=== PATIENT | male | born 1945 | race Caucasian/White ===

== ENCOUNTER 2023-11-08 18:16 | Inpatient (IN) | payer MEDICARE, SELFPAY ==
[2023-11-08] VITALS (19 sets, daily range): BP systolic 84–141; BP diastolic 45–81
[2023-11-08 12:44] LABS: % Basophils 0.3 % (0-2); % Eosinophils 0.8 % (0-6); % Immature Granulocytes 0.6 % (0-0.5); % Lymphocytes 4.1 % (20.5-51.1); % Monocytes 10.1 % (1.7-9.3); % Neutrophils 84.1 % (42.2-75.2); Absolute Eosinophils 0.1 10^3/uL (0-0.7); Absolute Immature Granulocytes 0.1 10^3/uL (0-0.05); Absolute Lymphocytes 0.6 10^3/uL (1.2-3.4); Absolute Monocytes 1.3 10^3/uL (0.1-0.6); Absolute Neutrophils 11.2 10^3/uL (1.4-6.5); Hematocrit 31.6 % (39.0-52.0); Hemoglobin 11.2 g/dL (13.0-18.0); Mean Corp Hgb Conc. 35.4 g/dL (33.0-37.0); Mean Corpuscular Hgb 32.8 pg (27.0-31.0); Mean Corpuscular Volume 92.7 fL (80.0-94.0); Mean Platelet Volume 8.8 fL (7.4-10.4); Nucleated Red Blood Cells % 0 % (-); Platelet Count 224 10^3/uL (130-400); Red Blood Cell Count 3.41 10^6/uL (4.70-6.10); White Blood Cell Count 13.3 10^3/uL (4.8-10.8)
[2023-11-08 13:06] LABS: ALT (SGPT) 47 U/L (0-50); AST (SGOT) 35 U/L (17-59); Albumin 3.7 g/dl (3.5-5.0); Alkaline Phosphatase 97 U/L (38-126); Blood Urea Nitrogen 92 mg/dl (9-20); Carbon Dioxide 18 mmol/L (22-30); Chloride 104 mmol/L (98-107); Glucose 106 mg/dl (70-99); Potassium 3.5 mmol/L (3.5-5.1); Sodium 135 mmol/L (135-145); Total Bilirubin 0.8 mg/dl (0.2-1.3); Total Protein 6.4 g/dl (6.3-8.2)
--- NOTE | 2023-11-08 13:36 | ED.GENMED ---
History of Present Illness
General
Chief Complaint: Back Pain
Source: patient and spouse
Exam Limitations: none
Time Seen by Provider: 11/08/23 13:26
Nursing documentation reviewed up to this point in time: agreed with
Travel History
Have you had any contact with someone who has COVID-19?: No
Do you have any symptoms of coronavirus? Fever > 100 degrees, chills, cough, shortness of breath, sore throat, loss of taste or smell, muscle aches, or headache?: No
History of Present Illness
History of Present Illness:
Patient to ED with comlaint of low back pain. Pain started earlier this week. He had an appointment with his PCP today for routine visit. UA at office heme pos. He was advised to come to ED. He has a history of kidney stones, follows with
[facility]. He has stage 5 kidney dx, follows with Dr. Norman at [facility]. Declines dialysis. Brought to ED by spouse for eval.
Past History
Past History
ED Past Medical History: HTN, Hypercholesterolemia, Renal failure, Psychiatric (Lewey Body Dementia) and Other (Kidneys stones, )
ED Past Surgical History: Other (hernia repair)
Social History
Tobacco: Non-smoker
Alcohol: None
Drug: None
Personal:
Living: with family
Employment: Employed
Family History
Family History: Hypertension
Review of Systems
Review of Systems
Allergies reviewed?: Yes
All Other Systems: ROS reviewed and negative except as documented in HPI and ROS
Constitutional: Reports no symptoms
EENT: Reports no symptoms
Respiratory: Reports no symptoms
Cardiac: Reports no symptoms
ABD/GI: Reports no symptoms
: Reports other (UA heme pos)
Musculoskeletal: Reports back pain (Bilateral low back pain)
Skin: Reports no symptoms
Neurological: Reports no symptoms
Psychiatric: Reports no symptoms
Phy Exam
General Physical Exam
General Presentation: well appearing and no apparent distress
General age: appears stated age
General Skin: warm and dry
General Habitus: normal
General Mental: alert
Cardiovascular Exam
Cardiovascular Exam: regular rate/rhythm
Pulmonary Exam
Pulmonary Exam: lungs clear and no respiratory distress
Gastrointestinal Exam
Gastrointestinal Exam: normal bowel sounds, non tender, soft, no pulsatile mass and cva tenderness (bilateral)
Musculoskeletal Exam
Musculoskeletal Exam: full ROM and neuro vasc intact
Skin Exam
Skin Exam: normal color, warm/dry and no rash
Psychiatric Exam
Psychiatric Exam: normal mood/affect
Course
Orders/Labs/Results
Orders:
Orders
11/08/23 Breakfast
NPO
Allow oral meds: No
Allow clear liquids: No
NPO with Ice Chips: No
11/08/23 12:37
Complete Blood Count/With Diff Urgent
Comprehensive Metabolic Panel Urgent
11/08/23 13:35
CT Abd/pel Without Iv Or Oral Urgent
Comment:
Reason For Exam: back pain, hx kidney stones, elevated creat
11/08/23 13:51
Urinalysis Reflex To Culture Urgent
Date Specimen was Collected: 11/08/23
Time Specimen was Collected: 12:27
Urine Microscopic Reflex Cult Urgent
Urine Culture Urgent
GUS Source: U
Specimen Description:
Date Specimen was Collected: 11/08/23
Time Specimen was Collected: 12:27
Comment: ADD ON
11/08/23 16:22
CefTRIAXone [Rocephin] 1,000 mg IV NOW STA
11/08/23 17:15
Admit/Transfer Patient As Directed
Co-Sign Provider:
Level of Care: Inpatient admission
Assign to:: Medical/Surgical
Physician / Group: [facility]
Diagnosis: HEATHER, Obstructing Kidney Stone
Reason for Hospitalization: Ureteral Stent, IVFs
Expected length of stay greater than two midnights?: Yes
ELOS- Estimated Length of Stay in days: 3
I certify the patient meets the requirements for IP care: Yes
11/08/23 17:16
Code Status As Directed
Resuscitation Status: Full Code
11/08/23 17:30
0.9% Sodium Chloride 1000 ml [Nss] 1,000 ml IV 80 mls/hr
11/08/23 17:41
Add On - Microbiology Routine
Tests Added?: urine culture
11/08/23 18:40
Blood Culture Q30M
GUS Source: Blood/Venous
Specimen Description:
Blood Culture Q30M
GUS Source: Blood/Venous
Specimen Description:
11/08/23 19:31
0.9% Sodium Chloride 1000 ml [Nss] 1,000 ml IV 75 mls/hr
Acetaminophen [Tylenol] 1,000 mg PO Q6HPRN PRN
Atorvastatin [Lipitor] 20 mg PO QPM
11/08/23 19:31
NEPHROLOGY CONSULT Routine
Consulting Provider: Kimberly Parson
Was physician already notified: Yes
UROLOGY CONSULT Routine
Consulting Provider: Jesus Da Silva Jr.
Was physician already notified: Yes
Activity As Directed
Activity Level: Out of Bed-Early Mobility
With Assistance
I&O [Intake/ Output] As Directed
Frequency: q12h
Strain Urine As Directed
Vital Signs As Directed
Frequency: Per unit guidelines
Weight As Directed
Frequency: Daily
DX Deep Vein Thrombosis Video Routine
11/08/23 20:00
Labetalol [Trandate] 200 mg PO BID
11/08/23 22:00
Docusate Sodium [Colace] 300 mg PO HS
Donepezil [Aricept] 10 mg PO HS
Melatonin 5 mg PO HS
11/09/23 00:00
Heparin 5,000 units SC Q8
11/09/23 Breakfast
Sodium, 2 Gram
Low Sodium: Potassium, 2 Gram
Basic Metabolic Panel IN AM
Complete Blood Count/No Diff IN AM
11/09/23 08:00
Allopurinol [Zyloprim] 100 mg PO DAILY
Calcitriol [Rocaltrol] 0.5 mcg PO DAILY
11/09/23 16:00
CefTRIAXone [Rocephin] 1,000 mg IV Q24H
Abnormal Lab Results
11/08/23 11/08/23
12:37 13:51
WBC 13.3 H 10^3/uL
(4.8-10.8)
RBC 3.41 L 10^6/uL
(4.70-6.10)
Hgb 11.2 L g/dL
(13.0-18.0)
Hct 31.6 L %
(39.0-52.0)
MCH 32.8 H pg
(27.0-31.0)
Abs Immat Gran (auto) 0.1 H 10^3/uL
(0-0.05)
Absolute Neuts (auto) 11.2 H 10^3/uL
(1.4-6.5)
Absolute Lymphs (auto) 0.6 L 10^3/uL
(1.2-3.4)
Absolute Monos (auto) 1.3 H 10^3/uL
(0.1-0.6)
Immature Gran % 0.6 H %
(0-0.5)
Neutrophils % 84.1 H %
(42.2-75.2)
Lymphocytes % 4.1 L %
(20.5-51.1)
Monocytes % 10.1 H %
(1.7-9.3)
Carbon Dioxide 18 L mmol/L
(22-30)
BUN 92 H mg/dl
(9-20)
Creatinine 6.6 H* mg/dL
(0.7-1.3)
Glucose 106 H mg/dl
(70-99)
Calcium 11.0 H mg/dl
(8.4-10.2)
Ur Occult Blood Reflex 3+ A
(Negative)
Leukocyte Esterase Rfl Trace A
(Negative)
Urine RBC 3-6 A /HPF
(0-2)
Urine Albumin (Reflex) 1+ A
(Neg - Trace)
11/08/23 12:37
11/08/23 12:37
Vital Signs
Initial and Last Documented VS:
Initial Vital Signs
Pulse Resp BP Pulse Ox
56 18 128/63 100
11/08/23 12:24 11/08/23 12:24 11/08/23 12:24 11/08/23 12:24
Last Documented Vital Signs
Temp Pulse Resp BP Pulse Ox
97.7 F 63 18 124/68 100
11/08/23 20:33 11/08/23 20:33 11/08/23 20:33 11/08/23 20:33 11/08/23 20:33
*Critical Care Note
Total Time (30-74mins, 75-104mins- exclusive of procedures): Not Applicable
Update Note
Update Note:
Dr. Da Silva notified of CT findings. Recommends admission to hospitalists service. OR tonight to remove stone. does not want surgery, state it will worsen his lewey body dementia. Risks explained to her. Dr. Da Silva to speak directly to .
ED Attending Note
-
Portions of this chart may have been created with voice recognition software.� Occasional wrong word or��sound alike� substitutions may have occurred due to the inherent limitations of voice recognition software.
Discharge Plan
Departure
Patient Disposition: Admit
Date of Disposition: 11/08/23
Time of Disposition: 16:21
Presentation/result/management discussed w/ accepting MD/DO: Hospitalist
Condition: Fair
Covid-19: Not Applicable
Discharge Problem:
Kidney stone, Renal failure, acute on chronic
Interventions
Interventions:
*Risk Screen - Suicide Last Done: 11/08/23 12:24
*General Assessment Last Done: 11/08/23 12:24
*Neglect/Abuse Screening Last Done: 11/08/23 12:24
ED- Fall Risk Assessment Last Done: 11/08/23 13:47
*ED COVID-19 Vaccine History Last Done: 11/08/23 12:24
*Nursing Disposition Last Done: 11/08/23 18:52
ED-Musculoskeletal Assessment Last Done: 11/08/23 13:47
Discharge Date and Time
Discharge Date/Time: 11/08/23 18:45
[2023-11-08 13:59] LABS: Urine Albumin 1+ (Neg - Trace); Urine Bilirubin Negative (Negative); Urine Character Clear (Clear); Urine Color Yellow; Urine Glucose Negative (Negative); Urine Ketone Negative (Negative); Urine Leukocyte Trace (Negative); Urine Nitrite Negative (Negative); Urine Occult Blood 3+ (Negative); Urine Urobilinogen Negative (Neg - 1+)
[2023-11-08 14:22] LABS: Urine Squamous Cell 0-2 /LPF (Few); Urine White Cell 0-2 /HPF (0-5)
[2023-11-08] MEDS: ROCEPHIN 1000 MG IV (16:38)
--- NOTE | 2023-11-08 17:21 | CON.MD ---
Consultation - Medical
-
see dictated note
pt with hx of stones and bph- followed by dr matthews
also ESRD- seen at [facility]
also lewy body dementia
presents with right flank pain- rising cr level and elevated wbc
ct shows 9mm right prox ureteral stone
reviewed options with pt and as well as risks, benefits, alternatives and disabilities
to OR when room available for right ureteral stent
--- NOTE | 2023-11-08 17:46 | HPS.HSE ---
Addendum entered and electronically signed by Isidro Fairbanks MD 11/08/23 17:56:
Seen and examined by me independently in collaboration with the nurse practitioner Jodie.
Past medical history/social history/medication/allergies reviewed.
Lab data and imaging data reviewed.
Patient with history of recurrent prior nephrolithiasis and also chronic kidney disease presents with few days right-sided back pain sent in here by PCP because of discovery of hematuria. He has got the right proximal ureter kidney stone with mild
hydronephrosis. He also has creatinine elevated to 6.6 with his baseline of 4 to 5 per pt . He follows with nephrology group at [facility].
He has no hyperkalemia. No fluid overload. Non-anion gap metabolic acidosis noted.
Urinalysis notes no pyuria but he is obstructed kidney and leukocytosis. Start on empirical antibiotics pending culture data.
Urology planning to take him to the OR this evening. Consult nephrology . Follow creatinine closely.
Original Note:
Family Physician
-
Family Physician: Archie Botello
Chief Complaint
-
Right Flank Pain
History of Present Illness
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 Pt describes the pain as being primarily in the right low back and states it began 7-10 days. The patient was seen by his PCP
this AM and a UA was performed which was heme positive. He denies fever, chills, or sweats.
Medical History
Past Medical History
Past Medical History: Reports Other
Additional Past Medical History:
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
Essential Hypertension
Hyperlipidemia
Lewy Body Dementia
BPH
Gout
Past Surgical History: Reports Other
Additional Past Surgical History:
Right Inguinal Hernia Repair
Kidney Stone Removal
Social History
Tobacco: Non-smoker
Alcohol: Daily (One glass of wine nightly)
Personal:
Living: With Family
Family History
Family History: Not pertinent
Allergies / Home Medications
Allergies reflects when Allergies were last updated in [facility].
Home Medications with original date entered in [facility]
Allergy/Medication List:
Allergies
Allergy/AdvReac Type Severity Reaction Status Date / Time
FABIOLA Inhibitors Allergy Tongue Verified 11/08/23 17:33
Swelling/angio
edema
Home Medications
atorvastatin 20 mg tablet 20 mg PO QPM 09/20/09
labetalol 200 mg tablet 200 mg PO BID 10/30/18
calcitriol 0.5 mcg capsule 0.5 mcg PO DAILY 05/02/23
docusate sodium 100 mg capsule (Colace) 300 mg PO HS 05/02/23
donepezil 5 mg tablet 10 mg PO HS 05/02/23
furosemide 40 mg tablet (Lasix) 40 mg PO BID 05/02/23
allopurinol 100 mg tablet 100 mg PO DAILY 11/08/23
melatonin 5 mg tablet 5 mg PO HS 11/08/23
Review of Systems
-
A 12 point ROS was completed and negative except as noted: Yes
Constitutional: Denies Fever or Chills
Respiratory: Denies Cough or Trouble Breathing
Cardiac: Denies Chest Pain or Palpitations
Physical Exam
Vital Signs
Vital Signs
Pulse Resp BP Pulse Ox
59 16 116/64 96
11/08/23 16:00 11/08/23 16:00 11/08/23 16:00 11/08/23 15:45
Physical Exam
General: Comfortable and Conversant
HEENT: Anicteric and Moist mucous membranes
Respiratory: Clear and Non Labored Respirations
Cardiac: S1/S2 and Regular Rhythm
GI: Soft and Non Tender
Genito-urinary: Other (Mild tenderness to palpation right CVA)
Musculoskeletal: No Clubbing, No Cyanosis and No Edema
Skin: Warm and Dry
Neuro: Awake, Alert, Oriented and Nonfocal/grossly intact
Psych: Calm
Laboratory Results
-
11/08/23 12:37
11/08/23 12:37
Laboratory Results
Total Bilirubin 0.8 mg/dl (0.2-1.3) 11/08/23 12:37
AST 35 U/L (17-59) 11/08/23 12:37
ALT 47 U/L (0-50) 11/08/23 12:37
Alkaline Phosphatase 97 U/L (38-126) 11/08/23 12:37
Data Reviewed
-
CT Scan: Report Reviewed by me
Lab Data: Labs Reviewed by me
Impression/Plan
-
HEATHER on CKD 5 secondary to Obstructing Right Ureteral Stone
-Consult Urology and Nephrology
-Plan for OR this evening for stent
-Hold Lasix
-Continue IVFs
-Continue Rocephin
Essential Hypertension
-Continue labetalol with hold parameters
Hyperlipidemia
-Continue atorvastatin
Lewy Body Dementia
-Continue donepezil
-Monitor for mood/behavior changes during hospitalization
DVT proph: SC Heparin
Code Status: Full Code
[2023-11-08] MEDS: NSS 1000 IV ×2 (18:38→21:08)
--- NOTE | 2023-11-08 19:30 | W.IMMPOSTOP ---
Surgical Immed Post Op Note
-
Primary Surgeon:
preeti
Assisting Surgeon:
Pre-op Diagnosis:
right ureteral stone
Post-op Diagnosis:
same
Procedure Performed:
cysto, right retrograde, right ureteral stent
Anesthesia Type:
gen
Specimen / Cultures:
none
Estimated Blood Loss:
1cc
Complications:
none
Operative Findings:
prox right ureteral stone on retrograde
stent placed
to pacu in stable condition
--- NOTE | 2023-11-08 20:42 | PTCARENOTE ---
Patient arrived from PACU, family at bedside. Patient participated in admission. Patient's provided information sheet in regards to Lewy body dementia, also on the phone with [facility] urologist.
[2023-11-08] MEDS: COLACE 300 MG PO (21:08)
[2023-11-08] MEDS: LIPITOR 20 MG PO (21:08)
[2023-11-08] MEDS: MELATONIN 5 MG PO (21:08)
[2023-11-08] MEDS: ARICEPT 10 MG PO (21:08)
[2023-11-08] MEDS: TRANDATE PO (21:09)
[2023-11-08] MEDS: HEPARIN 5000 UNITS SC (23:53)
[2023-11-09 03:15] VITALS: BP 123/68
[2023-11-09 05:33] LABS: Hematocrit 30.2 % (39.0-52.0); Hemoglobin 10.6 g/dL (13.0-18.0); Mean Corp Hgb Conc. 35.1 g/dL (33.0-37.0); Mean Corpuscular Hgb 32.3 pg (27.0-31.0); Mean Corpuscular Volume 92.1 fL (80.0-94.0); Mean Platelet Volume 9.1 fL (7.4-10.4); Platelet Count 217 10^3/uL (130-400); Red Blood Cell Count 3.28 10^6/uL (4.70-6.10); Red Cell Dist. Width 11.9 % (11.5-14.5); White Blood Cell Count 9.6 10^3/uL (4.8-10.8)
[2023-11-09 05:53] VITALS: BMI 24.5
[2023-11-09 06:00] VITALS: BMI 24.8
[2023-11-09 06:23] LABS: Blood Urea Nitrogen 98 mg/dl (9-20); Calcium 10.6 mg/dl (8.4-10.2); Carbon Dioxide 15 mmol/L (22-30); Chloride 105 mmol/L (98-107); Estimated Creatinine Clearance 9 ml/min; Glucose 111 mg/dl (70-99); Potassium 3.7 mmol/L (3.5-5.1); Sodium 136 mmol/L (135-145); eGFR 7.96
[2023-11-09 07:25] VITALS: BP 128/60
[2023-11-09] MEDS: NSS 1000 IV (08:12)
[2023-11-09] MEDS: NSS IV (08:15)
[2023-11-09] MEDS: TYLENOL 1000 MG PO ×2 (08:16→20:41)
[2023-11-09] MEDS: TRANDATE 200 MG PO ×2 (08:17→20:39)
[2023-11-09] MEDS: ROCALTROL 0.5 MCG PO (08:18)
[2023-11-09] MEDS: ZYLOPRIM 100 MG PO (08:18)
[2023-11-09] MEDS: HEPARIN 5000 UNITS SC ×2 (08:19→15:49)
--- NOTE | 2023-11-09 08:49 | W.PN.URO.CBU ---
Today's Communication / Plan
-
med eval
outpt f/u with urology
Assessment / Plan
-
stone- s/p stent
due to renal function and lewy body dementia would not add any specific meds for stent discomfort at this time as sx's seem minimal
eventual plan after discharge is to f/u to discuss definitive stone treatment with dr álvarez/dr matthews
discussed with med team
Diagnosis
-
Date of Service: November 09, 2023
-
Patient Diagnosis:
stone
s/p right ureteral stent 11/08
Subjective
-
pt stable
no fevers/wbc normal
cr has not improved
a little 'foggy' this am
Objective
-
Vital Signs
Temp Pulse Resp BP Pulse Ox
97.3 F 67 16 120/60 97
11/09/23 07:25 11/09/23 08:17 11/09/23 07:25 11/09/23 08:17 11/09/23 07:25
Intake and Output
11/08/23 11/09/23 11/10/23
06:59 06:59 06:59
Intake Total 1290 / 1290
Output Total 400 / 400
Balance 890 / 890
Intake:
Oral fluids 240 / 240
IV fluids (Total) 1050 / 1050
ns 150 / 150
Output:
Urine, Voided 400 / 400
Laboratory Results
11/09/23 05:03
11/09/23 05:03
Review of Systems
-
Constitutional: Fatigue
Respiratory: No Symptoms
Cardiac: No Symptoms
Abdomen/GI: No Symptoms
: Dysuria
Physical Exam
-
General - no acute distress
[2023-11-09 11:10] VITALS: BP 105/58
--- NOTE | 2023-11-09 11:59 | W.CON.NEPH ---
Consultation
-
Date/Time Consultation Requested: 11/08 19:31PM
Date/Time Consultation Performed: 11/09 11:59AM
Requesting Provider: Jodie Grijalva
Performing Provider: Kimberly Parson
Reason for Consultation: HEATHER on CKD
Medical History
-
Chief Complaint: HEATHER on CKD
History of Present Illness:
Mr. Lama is a 78YOM with PMH of lewy body dementia, CKD 4-5 10/20 to FSG, HTN, BPH, gout who presents to the hospital for lower back pain and was found to have a kidney stone for which he underwent stent placement overnight. He denies fevers or
chills at home and states that he feels much improved this AM.
Briefly, he underwent a kidney biopsy that showed moderate FSGS, mod-severe arterio and arteriosclerosis with hyalinosis on 10/2018. For IS, he was initially on prednisone but has been off since due to lack of response. He was initially on losartan,
but then stopped due to hypotension. This patient is now followed by Dr. Norman at [facility]. He states that his Cr usually ranges between 5-6. Last record they could show me showed a Cr of 4.8. Fortuantely, the patient denies asterixis,
fatigue, metallic taste. Endorses some anorexia (lost a few lbs over the past week) but has improved appetite now. Denies changes in urination. Denies SOB, swelling. Overall, feeling okay.
Past Medical History
LBD
CKD 4-5
HTN
FSGS
BPH
gout
Past Surgical History: Urological and Other (hernia repair)
Social History
Tobacco: Non-Smoker
Alcohol: Daily
Drug: None
Personal:
Family History
sister with horshoe kidney
Allergies / Home Medications
Allergy/AdvReac Type Severity Reaction Status Date / Time
FABIOLA Inhibitors Allergy Tongue Verified 11/08/23 17:33
Swelling/angio
edema
Medication Instructions Recorded Confirmed Type
atorvastatin 20 mg tablet 20 mg PO QPM 09/20/09 11/08/23 History
labetalol 200 mg tablet 200 mg PO BID 10/30/18 11/08/23 History
calcitriol 0.5 mcg capsule 0.5 mcg PO DAILY 05/02/23 11/08/23 History
docusate sodium 100 mg capsule 300 mg PO HS 05/02/23 11/08/23 History
(Colace)
donepezil 5 mg tablet 10 mg PO HS 05/02/23 11/08/23 History
furosemide 40 mg tablet (Lasix) 40 mg PO BID 05/02/23 11/08/23 History
allopurinol 100 mg tablet 100 mg PO DAILY 11/08/23 11/08/23 History
melatonin 5 mg tablet 5 mg PO HS 11/08/23 11/08/23 History
Review of Systems
-
History Source: Patient and Family
All other systems: Negative unless noted
Constitutional: Weight Loss
EENT: No Symptoms
Respiratory: No Symptoms
Cardiac: No Symptoms
Abdomen/GI: No Symptoms
: Flank Pain
Musculoskeletal: No Symptoms
Skin: No Symptoms
Neurological: No Symptoms
Endocrine: No Symptoms
Hematologic/Lymphatic: No Symptoms
Physical Exam
Vital Signs
Vital Signs
Temp Pulse Resp BP Pulse Ox
97.4 F 58 18 105/58 96
11/09/23 11:10 11/09/23 11:10 11/09/23 11:10 11/09/23 11:10 11/09/23 11:10
Lab Results
WBC 9.6 10^3/uL (4.8-10.8) 11/09/23 05:03
RBC 3.28 10^6/uL (4.70-6.10) L 11/09/23 05:03
Hgb 10.6 g/dL (13.0-18.0) L 11/09/23 05:03
Hct 30.2 % (39.0-52.0) L 11/09/23 05:03
Plt Count 217 10^3/uL (130-400) 11/09/23 05:03
Sodium 136 mmol/L (135-145) 11/09/23 05:03
Potassium 3.7 mmol/L (3.5-5.1) 11/09/23 05:03
Chloride 105 mmol/L (98-107) 11/09/23 05:03
Carbon Dioxide 15 mmol/L (22-30) L 11/09/23 05:03
BUN 98 mg/dl (9-20) H 11/09/23 05:03
Creatinine 6.7 mg/dL (0.7-1.3) H* 11/09/23 05:03
eGFR 7.96 11/09/23 05:03
Glucose 111 mg/dl (70-99) H 11/09/23 05:03
Calcium 10.6 mg/dl (8.4-10.2) H 11/09/23 05:03
Albumin 3.7 g/dl (3.5-5.0) 11/08/23 12:37
Physical Exam
General: AOx3
HEENT: PERRL, EOMI, Anicteric, Conjunctivae Clear and Ear/Nose Intact
Respiratory: Clear
Cardiac: S1/S2
Breast: N/A
Abdomen: Soft
Rectal: Deferred by Provider
Musculoskeletal: No Edema
Skin: No Rash
Neuro: Nonfocal/Grossly Intact
Psych: Mood/afflect pleasant and Insight/judgement good
Assessment/Plan
-
Assessment:
HEATHER on CKD V
HAGMA + NAGMA
Obstructing R ureteral stone
HTN
DLD
Lewy Body Dementia
Plan:
HEATHER on CKD
- baseline Cr 5-6, not significantly different from prior when looking at GFR
- patient is currently saying that he does not want HD . fortunately, no urgent indications of HD
- patient has not had access planning due to the severity of his LBD and his adverse reactions to procedures which brings into question if the patient would even be able to tolerate HD
- continue to trend BMP to see if there is any improvement in kidney function
- watch for any uremic symptoms and patient and educated on any concernign s/s
Acidosis
- likely from renal failure + RTA from obstruction
- please initiate patient on sodium bicarb gtt to correct acidosis
- he will likely need to go home with sodium bicarbonate tabs
Data Reviewed
-
CT Scan: Report Reviewed by me
Labs: Labs Reviewed by me and Discussed with Patient
Old Records: Reviewed
[2023-11-09] MEDS: SODIUM BICARBONATE 1150 MEQ IV (13:35)
--- NOTE | 2023-11-09 13:39 | W.PN.HOSP.TC ---
Today's Communication/Plan
-
Continue with antibiotics. Follow culture data.
Follow creatinine.
Assessment / Plan
Assessment / Plan
HEATHER on CKD 5 -could be sec Obstructing Right Ureteral Stone
-S/p emergent right ureteral stent placement. Resolved abdominal pain. Await creatinine improvement.
-Hold Lasix
-Continue IVFs
-Continue Rocephin pending culture data.
-Await nephrology input.
Essential Hypertension
-Continue labetalol with hold parameters. Blood pressure under goal.
Hyperlipidemia
-Continue atorvastatin
Lewy Body Dementia
-Continue donepezil
-Monitor for mood/behavior changes during hospitalization-no agitation or confusion.
DVT proph: SC Heparin
Code Status: Full Code
Anticipated Discharge: 24 - 48 hours
Subjective/Interval History
-
Date of Service: November 09, 2023
Resolved right-sided abdominal pain after ureteral stent placement.
No dysuria.
No fever or chills.
Denies any nausea vomiting.
Objective Data
-
Labs:
Laboratory Results
11/09/23
05:03
WBC 9.6
Hgb 10.6 L
Hct 30.2 L
Plt Count 217
Sodium 136
Potassium 3.7
Chloride 105
Carbon Dioxide 15 L
BUN 98 H
Creatinine 6.7 H*
Glucose 111 H
Calcium 10.6 H
Vital Signs:
Vital Signs
Temp Pulse Resp BP Pulse Ox
97.4 F 58 18 105/58 96
11/09/23 11:10 11/09/23 11:10 11/09/23 11:10 11/09/23 11:10 11/09/23 11:10
I&O
11/08/23 11/09/23 11/10/23
06:59 06:59 06:59
Intake Total 1290 / 1290
Output Total 400 / 400
Balance 890 / 890
Review of Systems
-
Respiratory: Denies Trouble Breathing
Cardiac: Denies Chest Pain
Neuro: Denies Dizzy
Physical Exam
-
General: No Apparent Distress
HEENT: Moist Mucous Membranes
Respiratory: Clear to Auscultation
Cardiac: Regular Rhythm and S1/S2
GI: Soft, Nontender, Nondistended and Normal Bowel Sounds
Neuro: AO x 3
Psych: Calm
Data Reviewed
-
Labs: Labs Reviewed by me
[2023-11-09 15:15] VITALS: BP 131/68
[2023-11-09] MEDS: LIPITOR 20 MG PO (15:49)
--- NOTE | 2023-11-09 15:59 | CM ---
manager market development reviewed patient's chart and met with patient and patient lives with spouse in a multilevel home with elevator, patient is independent with adl's and ambulation, uses an elevator, patient has a prescription plan and uses [facility].
PCP: Dr. Botello
Plan; Home with spouse when stable.
[2023-11-09] MEDS: ROCEPHIN 1000 MG IV (16:11)
--- NOTE | 2023-11-09 17:02 | PTCARENOTE ---
pt was difficult in shower, did not follow commands, continued to stand and almost slip several times. Advised family that we can do bed baths for other days.
[2023-11-09] MEDS: COLACE 300 MG PO (20:39)
[2023-11-09] MEDS: ARICEPT 10 MG PO (20:39)
[2023-11-09] MEDS: MELATONIN 5 MG PO (20:39)
[2023-11-09 22:59] VITALS: BP 136/64
[2023-11-10] MEDS: HEPARIN 5000 UNITS SC ×4 (00:12→23:59)
[2023-11-10] MEDS: SODIUM BICARBONATE 1150 MEQ IV (04:55)
[2023-11-10 05:31] LABS: Blood Urea Nitrogen 93 mg/dl (9-20); Calcium 11.2 mg/dl (8.4-10.2); Carbon Dioxide 23 mmol/L (22-30); Chloride 102 mmol/L (98-107); Estimated Creatinine Clearance 10 ml/min; Glucose 112 mg/dl (70-99); Potassium 3.2 mmol/L (3.5-5.1); Sodium 137 mmol/L (135-145); eGFR 9.09
[2023-11-10 06:00] VITALS: BMI 24.8
[2023-11-10 06:58] VITALS: BP 124/64
[2023-11-10] MEDS: ROCALTROL 0.5 MCG PO (08:40)
[2023-11-10] MEDS: TRANDATE 200 MG PO ×2 (08:41→20:14)
[2023-11-10] MEDS: ZYLOPRIM 100 MG PO (08:42)
--- NOTE | 2023-11-10 09:49 | W.PN.HOSP.TC ---
Addendum entered and electronically signed by Isidro Fairbanks MD 11/10/23 16:03:
Though he does not meet the standard criteria for HEATHER but based on the creatinine improvement after ureteral stent placement or more than 0.3 drop suspect there is an acute element ie HEATHER on CKD
Addendum entered and electronically signed by Isidro Fairbanks MD 11/10/23 09:58:
hypokalemia -replete
Original Note:
Today's Communication/Plan
-
Follow Cr
DC planning
Assessment / Plan
Assessment / Plan
HEATHER on CKD 5 -could be sec Obstructing Right Ureteral Stone
-S/p emergent right ureteral stent placement. Resolved abdominal pain. Improving creatinine-today 6.0
-Hold Lasix
-Tolerating diet. Off of IV fluids.
-Nephrology following.
-Culture data including urine and blood are negative. In view of urological interventions would treat with antibiotics for 5 days in total.
Essential Hypertension
-Continue labetalol with hold parameters. Blood pressure under goal.
Hyperlipidemia
-Continue atorvastatin
Lewy Body Dementia
-Continue donepezil
-Monitor for mood/behavior changes during hospitalization-no agitation or confusion.
DVT proph: SC Heparin
Code Status: Full Code
Continue to follow creatinine. DC planning depending on nephrology input.
Anticipated Discharge: Today
Subjective/Interval History
-
Date of Service: November 10, 2023
Patient remains pain-free from his right-sided abdomen. No nausea vomiting. Tolerating diet. Denies any dysuria.
No fever or chills.
Objective Data
-
Labs:
Laboratory Results
11/10/23
04:36
Sodium 137
Potassium 3.2 L
Chloride 102
Carbon Dioxide 23
BUN 93 H
Creatinine 6.0 H*
Glucose 112 H
Calcium 11.2 H
Vital Signs:
Vital Signs
Temp Pulse Resp BP Pulse Ox
97.5 F 65 22 124/64 96
11/10/23 06:58 11/10/23 06:58 11/10/23 06:58 11/10/23 06:58 11/10/23 06:58
I&O
11/09/23 11/10/23 11/11/23
06:59 06:59 06:59
Intake Total 1290 / 1290 2920 / 2920
Output Total 400 / 400 1550 / 1550
Balance 890 / 890 1370 / 1370
Review of Systems
-
Constitutional: Denies Fever
EENT: Denies Sore Throat
Respiratory: Denies Cough
Cardiac: Denies Chest Pain
Neuro: Denies Dizzy
Physical Exam
-
General: No Apparent Distress
HEENT: Moist Mucous Membranes
Respiratory: Clear to Auscultation
Cardiac: Regular Rhythm and S1/S2
GI: Soft and Nontender
Neuro: AO x 3
Psych: Calm
Data Reviewed
-
Labs: Labs Reviewed by me
--- NOTE | 2023-11-10 10:18 | PN.CDI ---
CDI
- -
CDI:
Physician Documentation Request
Admit Date: 11/08/23 18:16
Dear Doctor Magdi,
Patient admitted for right ureteral stone.
11/09 Nephrology PN: 'baseline Cr 5-6, not significantly different from prior when looking at GFR'
11/09 Hospitalist PN: 'HEATHER on CKD 5 -could be sec Obstructing Right Ureteral Stone -S/p emergent right ureteral stent placement. Resolved abdominal pain. Improving creatinine-today 6.0'
Laboratory Tests
11/08/23 11/09/23 11/10/23
12:37 05:03 04:36
Creatinine 6.6 H* 6.7 H* 6.0 H*
The purpose of this query is not to question medical judgement, but to ensure the accuracy of the conditions reported for your patient.
There is either a lack of clinical support for this condition in the current medical record, or there is a lack of recognized standard criteria to support the condition.
Criteria for HEATHER*
1 Increase in serum creatinine by > or = to 0.3 mg/dL (> or = to 26.5 micromol/L) within 48 hours, OR
2 Increase in serum creatinine to > or = to 1.5 times baseline, which is known or presumed to have occurred within 7 days, OR
3 Urine volume < 0.5 nL/kg/hour for six hours
The request is for one of the following:
- Additional documentation to support the condition. Indicate if this is in lieu of what may be considered standard criteria, and/or support why the standard criteria may not be present for this patient.
- A more appropriate diagnosis, reflecting the patient's condition
- HEATHER remains a known or suspected condition for this patient and is further supported by (include additional documentation in the medical record)
- HEATHER has been ruled out and a more appropriate diagnosis for this patient's condition is CKD 4/5
- Other (please specify)
Use of terms such as suspected, likely, concern for, or probable (associated with a specific diagnosis that is being evaluated, monitored, or treated as if it exists) are acceptable and can be coded in the inpatient setting, when documented at the
time of discharge.
Thank you,
Marlen Cerrato RN, BS
CDI Specialist
Available via [place] text
Please use your independent medical judgment in providing your response.
[2023-11-10] MEDS: KCL 40 MEQ PO (10:38)
--- NOTE | 2023-11-10 13:37 | CM ---
Patient with Lewy body dementia. Recently had anesthesia for R ureteral stent placement. Received call from who expressed concerns that patient is more unstable on feet than prior to hospitalization. Also has med sitter. She was requesting
services in the home. Met with patient and daughter in room. PT screening was ordered but not an evaluation. Screening did not recommend home services. MD has now ordered PT/OT evaluations to determine any additional needs. This CM will send
referral to [facility] (preference) for VN services. Will add services if PT/OT recommends. E-mailed and sent a list of vulnerability researcher agencys per her request. Patient and daughter notified.
[2023-11-10 14:29] VITALS: BP 132/67; PULSE 91; O2SAT 94
--- NOTE | 2023-11-10 14:36 | W.PN.NEPH.PH ---
Today's Communication / Plan
-
d/c per primary
Assessment/Plan
-
Assessment:
HEATHER on CKD V
HAGMA + NAGMA
Obstructing R ureteral stone
HTN
DLD
Lewy Body Dementia
Plan:
HEATHER on CKD
- baseline Cr 5-6, not significantly different from prior when looking at GFR
cr improving to 6 from peak 6.7 and non oliguric
noted Nir Dugan spoke to Nephro at [place] on 11/09-reportedly felt that he is not ideal candidate for HD with underlying Lewy body dementia hence HD decision deferred
no emergent need of SILK SCREEN REPAIRER at this time
met acidosi sis better with bicarb IVF
now that po intake seem good, ok to d/c IVF
replace k
spoke with on phone
BMP Monday after d/c
-
-
Date of Service: November 10, 2023
CC / HPI / ROS
-
Chief Complaint:
HEATHER with CKD5
History of Present Illness:
cr better at 6, bicarb better at 23
k low 3.2
non oliguric with out barillas
Review of Systems:
no complaints
feels well
no pain or sob
Labs
-
Labs:
WBC 9.6 10^3/uL (4.8-10.8) 11/09/23 05:03
RBC 3.28 10^6/uL (4.70-6.10) L 11/09/23 05:03
Hgb 10.6 g/dL (13.0-18.0) L 11/09/23 05:03
Hct 30.2 % (39.0-52.0) L 11/09/23 05:03
Plt Count 217 10^3/uL (130-400) 11/09/23 05:03
Sodium 137 mmol/L (135-145) 11/10/23 04:36
Potassium 3.2 mmol/L (3.5-5.1) L 11/10/23 04:36
Chloride 102 mmol/L (98-107) 11/10/23 04:36
Carbon Dioxide 23 mmol/L (22-30) 11/10/23 04:36
BUN 93 mg/dl (9-20) H 11/10/23 04:36
Creatinine 6.0 mg/dL (0.7-1.3) H* 11/10/23 04:36
eGFR 9.09 11/10/23 04:36
Glucose 112 mg/dl (70-99) H 11/10/23 04:36
Calcium 11.2 mg/dl (8.4-10.2) H 11/10/23 04:36
Albumin 3.7 g/dl (3.5-5.0) 11/08/23 12:37
Physical Exam
-
Vital Signs:
Vital Signs
Temp Pulse Resp BP Pulse Ox
97.5 F 65 22 124/64 96
11/10/23 06:58 11/10/23 06:58 11/10/23 06:58 11/10/23 06:58 11/10/23 06:58
Cardiovascular:: Regular rate and rhythm
Respiratory:: Bilateral: CTA
Lung Excursion:: Normal
Abdomen:: Nontender and Soft
Extremity Edema:: None: Bilateral:
Barillas Catheter: No
[2023-11-10 15:53] VITALS: BP 144/70
[2023-11-10] MEDS: LIPITOR 20 MG PO (17:56)
[2023-11-10] MEDS: ROCEPHIN 1000 MG IV (17:56)
[2023-11-10] MEDS: STERILE WATER FOR INJECTION 10 ML IV (17:56)
[2023-11-10] MEDS: COLACE 300 MG PO (21:22)
[2023-11-10] MEDS: MELATONIN 5 MG PO (21:22)
[2023-11-10] MEDS: ARICEPT 10 MG PO (21:22)
[2023-11-10 23:16] VITALS: BP 137/70
[2023-11-11 06:00] VITALS: BMI 24.5
[2023-11-11 07:19] VITALS: BP 145/74
[2023-11-11 07:21] LABS: Blood Urea Nitrogen 80 mg/dl (9-20); Calcium 11.8 mg/dl (8.4-10.2); Carbon Dioxide 25 mmol/L (22-30); Chloride 104 mmol/L (98-107); Estimated Creatinine Clearance 12 ml/min; Glucose 106 mg/dl (70-99); Potassium 3.7 mmol/L (3.5-5.1); Sodium 140 mmol/L (135-145); eGFR 10.79
[2023-11-11] MEDS: HEPARIN 5000 UNITS SC (08:13)
[2023-11-11] MEDS: ROCALTROL 0.5 MCG PO (08:14)
[2023-11-11] MEDS: TRANDATE 200 MG PO (08:14)
[2023-11-11] MEDS: ZYLOPRIM 100 MG PO (08:15)
[2023-11-11 11:35] VITALS: BP 124/71; PULSE 63
--- NOTE | 2023-11-11 12:19 | W.PN.HOSP.TC ---
Today's Communication/Plan
-
dc
Assessment / Plan
Assessment / Plan
HEATHER on CKD 5 -could be sec Obstructing Right Ureteral Stone
-S/p emergent right ureteral stent placement. Resolved abdominal pain. Improving creatinine-today 5.2. Baseline per renal 5.6
-resume Lasix as before -follow up BMP next week.
-Tolerating diet.
-Nephrology following.
-Culture data including urine and blood are negative. In view of urological interventions would treat with antibiotics for 5 days in total.
Essential Hypertension
-Continue labetalol . Blood pressure under goal.
Hyperlipidemia
-Continue atorvastatin
Lewy Body Dementia
-Continue donepezil
-Monitor for mood/behavior changes during hospitalization-no agitation or confusion.
DVT proph: SC Heparin
Code Status: Full Code
Medically stable for DC
DW at bedside regarding followup
Anticipated Discharge: Today
Subjective/Interval History
-
Date of Service: November 11, 2023
No further back pain.
No fever or chills.
Tolerating diet.
[place] weaker but today better. Seen by PT recommending home health.
Objective Data
-
Labs:
Laboratory Results
11/11/23
05:27
Sodium 140
Potassium 3.7
Chloride 104
Carbon Dioxide 25
BUN 80 H
Creatinine 5.2 H*
Glucose 106 H
Calcium 11.8 H
Vital Signs:
Vital Signs
Temp Pulse Resp BP Pulse Ox
98.4 F 69 19 145/74 95
11/11/23 07:19 11/11/23 07:19 11/11/23 07:19 11/11/23 07:19 11/11/23 07:19
I&O
11/10/23 11/11/23 11/12/23
06:59 06:59 06:59
Intake Total 2920 / 2920 480 / 480
Output Total 1550 / 1550
Balance 1370 / 1370 480 / 480
Review of Systems
-
Respiratory: Denies Trouble Breathing
Cardiac: Denies Chest Pain
Neuro: Denies Dizzy
Physical Exam
-
General: No Apparent Distress
HEENT: Moist Mucous Membranes
Respiratory: Clear to Auscultation
Cardiac: Regular Rhythm and S1/S2
GI: Soft and Nontender
Neuro: AO x 3
Data Reviewed
-
Labs: Labs Reviewed by me
--- NOTE | 2023-11-11 12:29 | W.DS.TRANS ---
DC Summary - Inspector Glass Or Mirror
-
Discharge Instructions:
Discharge Diagnosis/Procedures HEATHER on chronic kidney disease; obstructing right
ureteral stone status post stent placement
Nephrolithiasis
Diet 2 Gram Sodium
Activity As tolerated
Driving Restrictions As prior to admission
Bathing Restrictions None
Blood Work BMP starting of next week -arrange through your
PCP
Other Services VN,PT
Instructions:
Stand-Alone Forms:
Changes to Home Medications: Yes
Discharge Medications:
DC Medications w/original date entered in [facility]
atorvastatin 20 mg tablet 20 mg PO QPM 09/20/09
labetalol 200 mg tablet 200 mg PO BID 10/30/18
calcitriol 0.5 mcg capsule 0.5 mcg PO DAILY 05/02/23
docusate sodium 100 mg capsule (Colace) 300 mg PO HS 05/02/23
donepezil 5 mg tablet 10 mg PO HS 05/02/23
furosemide 40 mg tablet (Lasix) 40 mg PO BID 05/02/23
allopurinol 100 mg tablet 100 mg PO DAILY 11/08/23
melatonin 5 mg tablet 5 mg PO HS 11/08/23
cephalexin 250 mg capsule 250 mg PO BID #6 caps 11/11/23
Home Medication Changes
New medication-Keflex
Pending Results: No
--- NOTE | 2023-11-11 12:56 | W.PN.NEPH.PH ---
Today's Communication / Plan
-
see plan
Assessment/Plan
-
Assessment:
HEATHER on CKD V
HAGMA + NAGMA
Obstructing R ureteral stone
HTN
DLD
Lewy Body Dementia
Plan:
HEATHER on CKD
- baseline Cr 5-6, not significantly different from prior when looking at GFR
cr improving to 5.2 from peak 6.7 and non oliguric
noted that Dr Dugan spoke to Nephro at [facility] on 11/09-reportedly felt that he is not ideal candidate for HD with underlying Lewy body dementia hence HD decision deferred
no emergent need of MACHINING AND ASSEMBLY SUPERVISOR at this time
hypercalcemia noted, will hold calcitriol and resume lasix
BMP on Monday or Monday with nephro at [place]
spoke with at bedside
d/w primary
-
-
Date of Service: November 11, 2023
CC / HPI / ROS
-
Chief Complaint:
HEATHER with CKD5
History of Present Illness:
cr better at 5.2,
k normal
non oliguric with out barillas
Review of Systems:
no complaints
feels well
no pain or sob
Labs
-
Labs:
WBC 9.6 10^3/uL (4.8-10.8) 11/09/23 05:03
RBC 3.28 10^6/uL (4.70-6.10) L 11/09/23 05:03
Hgb 10.6 g/dL (13.0-18.0) L 11/09/23 05:03
Hct 30.2 % (39.0-52.0) L 11/09/23 05:03
Plt Count 217 10^3/uL (130-400) 11/09/23 05:03
Sodium 140 mmol/L (135-145) 11/11/23 05:27
Potassium 3.7 mmol/L (3.5-5.1) 11/11/23 05:27
Chloride 104 mmol/L (98-107) 11/11/23 05:27
Carbon Dioxide 25 mmol/L (22-30) 11/11/23 05:27
BUN 80 mg/dl (9-20) H 11/11/23 05:27
Creatinine 5.2 mg/dL (0.7-1.3) H* 11/11/23 05:27
eGFR 10.79 11/11/23 05:27
Glucose 106 mg/dl (70-99) H 11/11/23 05:27
Calcium 11.8 mg/dl (8.4-10.2) H 11/11/23 05:27
Albumin 3.7 g/dl (3.5-5.0) 11/08/23 12:37
Physical Exam
-
Vital Signs:
Vital Signs
Temp Pulse Resp BP Pulse Ox
98.4 F 69 19 145/74 95
11/11/23 07:19 11/11/23 07:19 11/11/23 07:19 11/11/23 07:19 11/11/23 07:19
Cardiovascular:: Regular rate and rhythm
Respiratory:: Bilateral: CTA
Lung Excursion:: Normal
Abdomen:: Nontender and Soft
Extremity Edema:: None: Bilateral: (trace)
Barillas Catheter: No
--- NOTE | 2023-11-11 13:00 | CM ---
MD entered order for discharge.
ASpoke with Vers she requested [facility]. [facility] accepted him.
She will drive him home.
PLAN Home with [facility]
--- NOTE | 2023-11-11 16:05 | W.DCSUMMARY ---
Discharge Summary
Discharge Data
Date of Admission: 11/08/23
Date of Discharge: 11/11/23
-
Pending Results: No
Hospital Course
Primary diagnosis:
Obstructing right ureteral stone s/p cystoscopy and stent placement
Recurrent nephrolithiasis
Acute kidney injury on chronic kidney disease stage V
Secondary diagnosis:
Essential hypertension
Hyperlipidemia
Lewy body dementia
Hospital course:
Patient with history of recurrent prior nephrolithiasis and chronic kidney disease stage V presented with few days of right-sided back pain and noted to have hematuria so referred here and we discovered he has a right proximal ureteral kidney stone
with mild hydronephrosis. His creatinine from baseline of 5.6 ,jumped up to 6.6. He had a urgent cystoscopy with a stent placement and his creatinine did improve to 5.2. He had no fluid overload or hyperkalemia. He had non-anion gap metabolic
acidosis. Was seen by pharmacy clinical coordinator.
He had leukocytosis but urine and blood cultures were negative ; to manipulation of the ureter and stent placement he was given 5 days total of antibiotics.
Consultants on board:
Urology-Dr. Da Silva
Nephrology-Dr. Parson
Discharge Plan
-
Patient Disposition: Home (Routine Discharge)
Discharge Diagnosis/Procedures: HEATHER on chronic kidney disease; obstructing right ureteral stone status post stent placement
Nephrolithiasis
Condition: Fair
Diet: 2 Gram Sodium
Activity: As tolerated
Driving Restrictions: As prior to admission
Bathing Restrictions: None
Blood Work: BMP starting of next week -arrange through your PCP
Other Services: VN and PT
Referrals:
Jesus Da Silva Jr., MD [Active] - in one to two weeks
Archie Botello MD [Family Provider] - in less than 1 week
Prescriptions:
New
cephalexin 250 mg capsule
250 mg PO BID Qty: 6 0RF
Rx Instructions:
for 3 days
Continued
atorvastatin 20 MG tablet
20 mg PO QPM
labetalol 200 MG tablet
200 mg PO BID
furosemide [Lasix] 40 mg Tablet
40 mg PO BID
donepezil 5 mg Tablet
10 mg PO HS
docusate sodium [Colace] 100 mg Capsule
300 mg PO HS
allopurinol 100 mg Tablet
100 mg PO DAILY
melatonin 5 mg Tablet
5 mg PO HS
Held
calcitriol 0.5 mcg Capsule
0.5 mcg PO DAILY
Hold Instructions: Resume on 11/18/23. hold till next BMP blood check
Discharge Orders:
Discharge Patient (As Directed); Ordered 11/11/23
Ordered By: Isidro Fairbanks
Discharge Date and Time
Discharge Date/Time: 11/11/23 13:31
== END 2023-11-11 13:31 | disposition home health service (06) | DRG 660 ==
LOC: 2 SOUTH 18:16
PROVIDERS: Emergency Medicine; Physician Assistant Medical; ADMITTING PHYSICIAN Internal Medicine; CONSULT PHYSICIAN Specialist; CONSULT PHYSICIAN Student in an Organized Health Care Education/Training Program; EMERGENCY PHYSICIAN Emergency Medicine; FAMILY PHYSICIAN Family Medicine
PROC: 5A09357 Assistance with Respiratory Ventilation, Less than 24 Consecutive Hours, Continuous Positive Airway Pressure (ICD-10-PCS; 2023-11-08)
PROC: BT1D1ZZ Fluoroscopy of Right Kidney, Ureter and Bladder using Low Osmolar Contrast (ICD-10-PCS; 2023-11-09)
PROC: 0T768DZ Dilation of Right Ureter with Intraluminal Device, Via Natural or Artificial Opening Endoscopic (ICD-10-PCS; 2023-11-09)
DX: N13.2 Hydronephrosis with renal and ureteral calculous obstruction (principal); E87.20 Acidosis, unspecified; I12.0 Hypertensive chronic kidney disease with stage 5 chronic kidney disease or end stage renal disease; M54.9 Dorsalgia, unspecified; N17.9 Acute kidney failure, unspecified; E78.00 Pure hypercholesterolemia, unspecified; N40.0 Benign prostatic hyperplasia without lower urinary tract symptoms; N21.0 Calculus in bladder; E87.6 Hypokalemia; D72.829 Elevated white blood cell count, unspecified; N18.5 Chronic kidney disease, stage 5; G31.83 Neurocognitive disorder with Lewy bodies; I95.9 Hypotension, unspecified; R63.0 Anorexia; F02.80 Dementia in other diseases classified elsewhere, unspecified severity, without behavioral disturbance, psychotic disturbance, mood disturbance, and anxiety; M10.9 Gout, unspecified; Z88.8 Allergy status to other drugs, medicaments and biological substances; Z87.442 Personal history of urinary calculi
CPT/HCPCS: 74176; 74420; 76000; 80048; 80053; 81003; 81015; 85025; 85027; 87040; 87086; 96374; 97162; 97166; 97530; 99285; C2617

== ENCOUNTER 2023-11-28 06:11 | Day surgery (SDC) | payer MEDICARE, SELFPAY ==
[2023-11-28] VITALS (8 sets, daily range): BP systolic 112–138; BP diastolic 66–74; BMI 24.9
--- NOTE | 2023-11-28 07:33 | PTCARENOTE ---
Dr. Sloan and anesthesia made aware of creatnine of 5.2 on Fev 24th blood draw. No further orders.
[2023-11-28] MEDS: NORMOSOL-R 1000 IV (07:34)
[2023-12-01 18:52] LABS: Stone Analysis Mass 4 mg
== END 2023-11-28 10:05 | disposition home or self-care (01) ==
LOC: SDS 06:11
PROVIDERS: ATTENDING PHYSICIAN Specialist
DX: N20.0 Calculus of kidney (principal); N04.8 Nephrotic syndrome with other morphologic changes; N17.9 Acute kidney failure, unspecified
CPT/HCPCS: 52356; 74018; 76000; 82365; 93005; A4300; C1894; C2617

== ENCOUNTER → 2025-07-15 10:42 | Outpatient (REF) | payer MEDICARE, SELFPAY ==
[2025-07-15 11:15] LABS: Hematocrit 31.4 % (39.0-52.0); Hemoglobin 10.0 g/dL (13.0-18.0); Mean Corp Hgb Conc. 31.8 g/dL (33.0-37.0); Mean Corpuscular Volume 101.9 fL (80.0-94.0); Nucleated Red Blood Cells % 0 % (-); Platelet Count 143 10^3/uL (130-400); Red Cell Dist. Width 11.9 % (11.5-14.5)
[2025-07-15 12:03] LABS: ALT (SGPT) 26 U/L (0-50); AST (SGOT) 19 U/L (17-59); Albumin 3.9 g/dl (3.5-5.0); Alkaline Phosphatase 98 U/L (38-126); Blood Urea Nitrogen 88 mg/dl (9-20); Calcium 8.5 mg/dl (8.4-10.2); Carbon Dioxide 21 mmol/L (22-30); Chloride 109 mmol/L (98-107); Glucose 148 mg/dl (70-99); Potassium 5.0 mmol/L (3.5-5.1); Sodium 137 mmol/L (135-145); Total Protein 6.3 g/dl (6.3-8.2); eGFR 7.46
== END ==
LOC: REG 10:42
PROVIDERS: ATTENDING PHYSICIAN Internal Medicine Nephrology; FAMILY PHYSICIAN Family Medicine
DX: R05.9 Cough, unspecified (principal); N18.5 Chronic kidney disease, stage 5; N05.1 Unspecified nephritic syndrome with focal and segmental glomerular lesions
CPT/HCPCS: 36415; 71046; 80053; 85025

== ENCOUNTER 2025-07-21 09:36 | Inpatient (IN) | payer MEDICARE, SELFPAY ==
[2025-07-18] VITALS (7 sets, daily range): BP systolic 119–158; BP diastolic 65–79; BMI 25.5
[2025-07-18 11:44] LABS: Hematocrit 32.0 % (39.0-52.0); Hemoglobin 10.3 g/dL (13.0-18.0); Mean Corp Hgb Conc. 32.2 g/dL (33.0-37.0); Mean Corpuscular Volume 100.6 fL (80.0-94.0); Nucleated Red Blood Cells % 0 % (-); Platelet Count 166 10^3/uL (130-400); Red Cell Dist. Width 11.8 % (11.5-14.5)
[2025-07-18 12:19] LABS: ALT (SGPT) 25 U/L (0-50); AST (SGOT) 18 U/L (17-59); Albumin 4.1 g/dl (3.5-5.0); Alkaline Phosphatase 92 U/L (38-126); Blood Urea Nitrogen 94 mg/dl (9-20); Calcium 8.6 mg/dl (8.4-10.2); Carbon Dioxide 23 mmol/L (22-30); Chloride 107 mmol/L (98-107); Glucose 112 mg/dl (70-99); Potassium 4.2 mmol/L (3.5-5.1); Sodium 138 mmol/L (135-145); Total Protein 6.7 g/dl (6.3-8.2); eGFR 7.33
--- NOTE | 2025-07-18 13:29 | ED.GENMED ---
History of Present Illness
General
Chief Complaint: Weakness
Time Seen by Provider: 07/18/25 13:04
History of Present Illness
History of Present Illness:
Patient is a 80-year-old male with history of Lewy body dementia, hypertension, hyperlipidemia presenting to the emergency department worsening confusion and cough. Patient is unable to tell history given dementia. Patient's at bedside states
that last week he developed a cough. Since then he has been having a drastic decline in his mental status. His dementia exponentially worsened overnight. He has been more aggressive. Has been having increased hallucinations no falls.. No fevers
or chills. No congestion that is worse than baseline. No chest pain. Mild shortness of breath. He did have an outpatient x-ray completed which showed no obvious pneumonia. He was sent by his primary care doctor for further testing.
Past History
Past History
ED Past Medical History: HTN, Hypercholesterolemia, Renal failure, Psychiatric (Lewey Body Dementia) and Other (Kidneys stones, )
ED Past Surgical History: Other (hernia repair)
Social History
Tobacco: Non-smoker
Alcohol: None
Drug: None
Personal:
Living: with family
Employment: Employed
Family History
Family History: Hypertension
Phy Exam
Physical Exam
Physical Exam:
GENERAL: in no acute distress, confused
HEENT: normocephalic, extraocular movements intact, moist oral mucosa
NECK: normal inspection
RESPIRATORY: no respiratory distress, clear to auscultation bilaterally
CARDIOVASCULAR: regular rate and rhythm
ABDOMEN/: soft, non-distended, non-tender to palpation, no rebound or guarding
EXTREMITIES: non-tender, no edema/swelling
NEUROLOGIC: awake and alert, moves all extremities
SKIN: warm
Course
Orders/Labs/Results
Orders:
Orders
07/18/25 11:22
Complete Blood Count/With Diff Urgent
Comprehensive Metabolic Panel Urgent
07/18/25 13:26
CT Chest W/o Iv Contrast Urgent
Comment:
Reason For Exam: cough
CT Head W/o Iv Contrast Urgent
Comment:
Reason For Exam: ams
07/18/25 13:27
Electrocardiogram (*1) Urgent
Reason for Study: Fatigue / Weakness
EKG- Treatment ONCE
07/18/25 13:35
COVID-19 Antigen Urgent
Source: Nasal Swab
Influenza A+B Rapid Molecular Urgent
GUS Source: Nasal Swab
Specimen Description:
07/18/25 15:05
Urinalysis Reflex To Culture Urgent
Date Specimen was Collected: 07/18/25
Time Specimen was Collected: 14:23
Abnormal Lab Results
07/18/25
11:22
RBC 3.18 L 10^6/uL
(4.70-6.10)
Hgb 10.3 L g/dL
(13.0-18.0)
Hct 32.0 L %
(39.0-52.0)
MCV 100.6 H fL
(80.0-94.0)
MCH 32.4 H pg
(27.0-31.0)
MCHC 32.2 L g/dL
(33.0-37.0)
Absolute Lymphs (auto) 0.8 L 10^3/uL
(1.2-3.4)
Absolute Monos (auto) 0.7 H 10^3/uL
(0.1-0.6)
Neutrophils % 77.5 H %
(42.2-75.2)
Lymphocytes % 10.2 L %
(20.5-51.1)
BUN 94 H mg/dl
(9-20)
Creatinine 7.1 H* mg/dL
(0.7-1.3)
Glucose 112 H mg/dl
(70-99)
07/18/25 11:22
07/18/25 11:22
Vital Signs
Initial and Last Documented VS:
Initial Vital Signs
Temp Pulse Resp BP Pulse Ox
98.4 F 90 16 126/66 98
07/18/25 11:13 07/18/25 11:13 07/18/25 11:13 07/18/25 11:13 07/18/25 11:13
Last Documented Vital Signs
Temp Pulse Resp BP Pulse Ox
98.4 F 55 18 142/65 98
07/18/25 11:13 07/18/25 13:15 07/18/25 13:21 07/18/25 13:10 07/18/25 13:32
MDM/Problems Addressed
Differential Diagnosis Includes:
Patient is a 80-year-old male with history of Lewy body dementia, hyper stoma hyperlipidemia presenting to the emergency department with a change in his mental status along with coughing. On arrival vitals unremarkable. Exam does show a confused
man with clear breath sounds. No isolated weakness or neurodeficits. Concern for worsening pneumonia versus viral illness versus electrolyte derangement or urine infection. Will obtain blood work EKG CT scan of the head to evaluate for any
intracranial pathology as well as CT scan of the chest to evaluate for any pneumonia. Given patient's aggression hallucinations and worsening mental status patient is unsafe to be discharged home and will need admission for further
evaluation/possible placement.
*Pulse Oximetry
SaO2: 98
Oxygen Mode of Delivery: Room air
Patient hypoxic: no
*Critical Care Note
Total Time (30-74mins, 75-104mins- exclusive of procedures): Not Applicable
Update Note
Update Note:
Blood work notable for elevated creatinine as well as BUN. Per patient's family that has been ongoing. They are doing palliative care for his kidney failure.
Labs otherwise are unremarkable. Discussed with hospitalist who accepted patient to their service pending CAT scan of the head and chest as well as urinalysis.
ED Attending Note
-
Portions of this chart may have been created with voice recognition software.� Occasional wrong word or��sound alike� substitutions may have occurred due to the inherent limitations of voice recognition software.
Discharge Plan
Departure
Patient Disposition: Admit
Date of Disposition: 07/18/25
Time of Disposition: 15:12
Presentation/result/management discussed w/ accepting MD/DO: Hospitalist
Discharge Problem:
Altered mental status
Prescriptions:
No Action
atorvastatin 20 MG tablet
20 mg PO QPM
furosemide [Lasix] 40 mg Tablet
40 mg PO BID
allopurinol 100 mg Tablet
100 mg PO QPM
melatonin 5 mg Tablet
10 mg PO HS
labetalol 100 mg Tablet
100 mg PO BID
donepezil 10 mg Tablet
10 mg PO HS
dutasteride 0.5 mg Capsule
0.5 mg PO HS
cholecalciferol (vitamin D3) [Vitamin D3] 25 mcg (1,000 unit) Tablet
25 mcg PO DAILY
magnesium oxide 400 mg magnesium Tablet
400 mg PO HS
Referrals:
Archie Botello MD [Family Provider, Family Practice]
Interventions
Interventions:
*Risk Screen - Suicide Last Done: 07/18/25 11:13
*General Assessment Last Done: 07/18/25 13:38
*Neglect/Abuse Screening Last Done: 07/18/25 11:13
*ED- Fall Risk Assessment Last Done: 07/18/25 13:38
*ED COVID-19 Vaccine History Last Done: 07/18/25 13:38
*ED Influenza Vaccine History Last Done: 07/18/25 13:38
ED- Cardiac Assessment Last Done: 07/18/25 13:38
ED- Neurological Assessment Last Done: 07/18/25 13:38
ED- Pulmonary Assessment Last Done: 07/18/25 13:38
Discharge Date and Time
Print Language: JAPANESE
[2025-07-18 14:02] LABS: COVID-19 Antigen Negative (Negative)
--- NOTE | 2025-07-18 15:16 | HPS.HSE ---
Addendum entered and electronically signed by Mu Young MD 07/18/25 17:15:
This is an addendum to H&P written by Kira Gutierrez on 07/18/2025. �Patient seen and examined independently with [employer] [employer].
80-year-old male past medical history of recurrent nephrolithiasis, CKD 5, hypertension, hyperlipidemia, Lewy body dementia, BPH, gout, presenting with worsening confusion and cough. �He developed a cough last week and since then having a drastic
decline in his mental status. �Worsening aggression since yesterday. �Increase hallucinations without falls. �No fevers or chills.
Vital signs unremarkable.
Labs show stable anemia of 10.3.
Chest x-ray from 07/15 no acute cardiopulmonary process. �COVID and flu negative.
Patient with acute metabolic encephalopathy rule out acute bronchitis versus pneumonia versus UTI �exacerbating underlying Lewy body dementia. �Urinalysis pending. �CT head and CT chest pending. �If no other causes for acute metabolic encephalopathy
can be found uremia may be a possibility although patient has previously and continues to refuse dialysis. �Hold Lasix. �Continue melatonin for insomnia.
Original Note:
Family Physician
-
Family Physician: Archie Botello
Chief Complaint
-
confusion
History of Present Illness
80-year-old male with history of Lewy body dementia, hypertension, hyperlipidemia,CKD stage V presenting to the emergency department worsening confusion and cough.patient stated cough with yellowish sputum for 1 week. For past few days he was noted
to have was any confusion, hallucination little aggressive. Patient denied any headache, fever, chills, chest pain, short of breath. Patient denied any abdominal pain, nausea, vomiting or diarrhea. Patient denied dysuria hematuria.
Chest x-ray on 1028 with no acute findings. Admitted for further manage
Medical History
Past Medical History
Past Medical History: Reports Other
Additional Past Medical History:
BPH, B12 deficiency, focal glomera sclerosis, obstructive sleep apnea, neurocognitive disorder with Lewy bodies, dementia, hypertension, kidney stones, bladder stones, CKD stage V
Past Surgical History: Reports Other
Additional Past Surgical History:
Kidney stones removal, excision of Warthin's tumor, right inguinal hernia repair with mesh
Social History
Tobacco: Non-smoker
Alcohol: Occasional
Drug: None
Personal:
Living: With Family
Family History
Family History: Not pertinent
Allergies / Home Medications
Allergies reflects when Allergies were last updated in [facility].
Home Medications with original date entered in [facility]
Allergy/Medication List:
Allergies
Allergy/AdvReac Type Severity Reaction Status Date / Time
FABIOLA Inhibitors Allergy Tongue Verified 07/18/25 11:15
Swelling/angio
edema
loperamide Allergy change in Verified 07/18/25 11:15
ms
Home Medications
atorvastatin 20 mg tablet 20 mg PO QPM High Cholesterol 09/20/09
furosemide 40 mg tablet (Lasix) 40 mg PO BID Fluid Retention/Swelling 05/02/23
allopurinol 100 mg tablet 100 mg PO QPM Gout 11/08/23
melatonin 5 mg tablet 10 mg PO HS Sleep 11/08/23
labetalol 100 mg tablet 100 mg PO BID Heart Disease/Condition 11/23/23
cholecalciferol (vitamin D3) 25 mcg (1,000 unit) tablet (Vitamin D3) 25 mcg PO DAILY Supplement 07/18/25
donepezil 10 mg tablet 10 mg PO HS Mental Health/Anxiety 07/18/25
dutasteride 0.5 mg capsule 0.5 mg PO HS Urinary Issue 07/18/25
magnesium oxide 400 mg PO HS Supplement 07/18/25
Review of Systems
-
Constitutional: Reports No Symptoms
EENT: Reports No Symptoms
Respiratory: Reports Cough
Cardiac: Reports No Symptoms
Abdomen/GI: Reports No Symptoms
: Reports No Symptoms
Musculoskeletal: Reports No Symptoms
Skin: Reports No Symptoms
Neurological: Reports No Symptoms
Endocrine: Reports No Symptoms
Hematologic/Lymphatic: Reports No Symptoms
Psych: Reports No Symptoms
Physical Exam
Vital Signs
Vital Signs
Temp Pulse Resp BP Pulse Ox
98.4 F 55 18 142/65 98
07/18/25 11:13 07/18/25 13:15 07/18/25 13:21 07/18/25 13:10 07/18/25 13:32
Physical Exam
General: Well Developed, Well Nourished and No Apparent Distress
HEENT: NormoCephalic, Moist mucous membranes and Atraumatic
Respiratory: Clear
Cardiac: S1/S2 and Regular Rhythm; No Murmur or Rub
GI: Soft, Non Tender, Non Distended and Normal Bowel Sounds; No Organomegaly
Rectal: Deferred by Provider
Musculoskeletal: No Clubbing, No Cyanosis and No Edema
Skin: No Rash
Neuro: AO x 3 and Nonfocal/grossly intact
Psych: Calm
Laboratory Results
-
07/18/25 11:22
07/18/25 11:22
Laboratory Results
Total Bilirubin 0.7 mg/dl (0.2-1.3) 07/18/25 11:22
AST 18 U/L (17-59) 07/18/25 11:22
ALT 25 U/L (0-50) 07/18/25 11:22
Alkaline Phosphatase 92 U/L (38-126) 07/18/25 11:22
Data Reviewed
-
Diagnostic Radiology: Report Reviewed by me
Lab Data: Labs Reviewed by me
Impression/Plan
-
# Acute metabolic encephalopathy unclear cause concern for uremia
# History for lewy body dementia
# Cough concern for bronchitis
- UA pending
- CT of head and chest pending
- COVID-negative
- Recent chest x-ray with no acute findings
- Aricept continued for dementia
-Mucinex for cough
-melatonin continued for sleep
-consider Seroquel, if patient having trouble falling sleep.(D/w psychiatrist)
# BPH
- Dutasteride continued
# Anemia of chronic disease
- Hemoglobin stable at 10.3, no active bleeding
- Continue to monitor
# HEATHER on CKD stage V
- Creatinine 7.1
- Hold Lasix
-patient and family denying dialysis
-as per nephro from last admission, he is not ideal candidate for HD with underlying Lewy body dementia
# Gout
- Allopurinol continued
#Essential Hypertension/hyperlipidemia
- Atorvastatin continued
- Labetalol continue with hold parameters
#DVT proph: SC Heparin
#Code Status: DNR
[2025-07-18 15:36] LABS: Urine Character Clear (Clear)
[2025-07-18 15:41] LABS: Urine Squamous Cell 0-2 /LPF (Few); Urine White Cell 0-2 /HPF (0-5)
--- NOTE | 2025-07-18 15:57 | EDCM ---
CM reviewed chart and met with pt and his bedside in ED. Lives with his in second floor cond, building has elevator access.
Independent in ADLs, personal care and ambulation at baseline, no assistive devices. Only DME is CPAP.
Confirms prescription coverage.
[facility] reviewed and signed by his , copy left with them.
Hx [facility], no hx SNF.
PCP: Archie Botello
Pharmacy: [facility]
CM will continue to follow for all discharge planning needs.
--- NOTE | 2025-07-18 18:27 | W.PN.UPDATE ---
Update Note
Progress Note Update
chest CT concerning for There is mild bronchial wall thickening with small nodular and ground glass opacities in the anterior left upper lobe consistent with pneumonia/bronchopneumonia.There is a 2.5 cm nodule in the posterior right lower lobe which
is demonstrated slow growth over time previously measuring 9 mm in 2008. Given the calcified mediastinal/right hilar lymph nodes this may be sequelae of granulomatous infection although low-grade malignancy is possible. Consider nonemergent PET for
further evaluation.There is a 1.6 cm soft tissue nodule in the anterior mediastinum which may represent an enlarged lymph node although also may be further evaluated on repeat imaging.Fusiform dilation of the ascending thoracic aorta measuring 4.2
cm.Small hiatal hernia.If the patient has emphysema, patient should be assessed for an annual low dose lung cancer CT program, as pulmonary emphysema is an independent risk factor for lung cancer.
initiated on iv ceftriaxone and doxycycline
--- NOTE | 2025-07-18 19:00 | PTCARENOTE ---
Recieved pt from ED. Pt oriented to unit, bed alarm in place, and call maloney within reach. Pt. care ongoing.
[2025-07-18] MEDS: LIPITOR 20 MG PO (20:07)
[2025-07-18] MEDS: ZYLOPRIM 100 MG PO (20:07)
[2025-07-18] MEDS: MUCINEX 600 MG PO (20:08)
[2025-07-18] MEDS: VIBRAMYCIN 100 MG PO (20:09)
[2025-07-18] MEDS: TRANDATE 100 MG PO (20:09)
[2025-07-18] MEDS: HEPARIN 5000 UNITS SC (20:10)
[2025-07-18] MEDS: ROCEPHIN 1000 MG IV (20:11)
[2025-07-18] MEDS: STERILE WATER FOR INJECTION 10 ML IV (20:11)
[2025-07-18] MEDS: MAGNESIUM OXIDE 400 MG PO (21:03)
[2025-07-18] MEDS: PROSCAR 5 MG PO (21:03)
[2025-07-18] MEDS: MELATONIN 10 MG PO (21:03)
[2025-07-18] MEDS: ARICEPT 10 MG PO (21:03)
[2025-07-19 08:07] LABS: Hematocrit 31.6 % (39.0-52.0); Hemoglobin 10.2 g/dL (13.0-18.0); Mean Corp Hgb Conc. 32.3 g/dL (33.0-37.0); Mean Corpuscular Volume 102.3 fL (80.0-94.0); Platelet Count 162 10^3/uL (130-400); Red Cell Dist. Width 11.7 % (11.5-14.5)
[2025-07-19 08:21] VITALS: BP 150/75
[2025-07-19 08:32] LABS: Blood Urea Nitrogen 94 mg/dl (9-20); Calcium 8.8 mg/dl (8.4-10.2); Carbon Dioxide 21 mmol/L (22-30); Chloride 110 mmol/L (98-107); Estimated Creatinine Clearance 9 ml/min; Glucose 93 mg/dl (70-99); Potassium 4.5 mmol/L (3.5-5.1); Sodium 143 mmol/L (135-145); eGFR 7.33
[2025-07-19] MEDS: TRANDATE 100 MG PO ×2 (08:58→20:28)
[2025-07-19] MEDS: VIBRAMYCIN 100 MG PO ×2 (08:58→20:28)
[2025-07-19] MEDS: MUCINEX 600 MG PO ×2 (08:58→20:27)
[2025-07-19] MEDS: VITAMIN D3 (cholecalciferol) 25 MCG PO (08:59)
[2025-07-19] MEDS: HEPARIN 5000 UNITS SC ×2 (08:59→20:27)
--- NOTE | 2025-07-19 13:40 | W.PN.HOSP.TC ---
Today's Communication/Plan
-
Maintained on Rocephin/azithromycin
Add trazodone nighttime for owning
Monitor renal function
Adjust diet to low potassium diet
Assessment / Plan
Assessment / Plan
CT chest
There is mild bronchial wall thickening with small nodular and ground glass opacities in the anterior left upper lobe consistent with pneumonia/bronchopneumonia.
There is a 2.5 cm nodule in the posterior right lower lobe which is demonstrated slow growth over time previously measuring 9 mm in 2008. Given the calcified mediastinal/right hilar lymph nodes this may be sequelae of granulomatous infection
although low-grade malignancy is possible. Consider nonemergent PET for further evaluation.
There is a 1.6 cm soft tissue nodule in the anterior mediastinum which may represent an enlarged lymph node although also may be further evaluated on repeat imaging.
Fusiform dilation of the ascending thoracic aorta measuring 4.2 cm. Small hiatal hernia. If the patient has emphysema, patient should be assessed for an annual low dose lung cancer CT program, as pulmonary emphysema is an independent risk factor for
lung cancer.
The [facility] Pulmonary Nodule Advisory Board will be notified.

# Acute metabolic encephalopathy
# History for Lewy body dementia
# Postnasal drip
- UA/COVID neg,
- CT chest showing possible thickening with small nodular ground glass opacity in the left upper lobe consistent with pneumonia
- Patient with postnasal drip and resultant episodic cough. Patient is not able to tolerate any OTC meds in the past due to anticholinergic effects causing behavioral issues.,
- Recent chest x-ray with no acute findings
- Aricept continued for dementia
- Will provide empiric Rocephin and azithromycin for time
# BPH
- Dutasteride continued
# Lewy body dementia
- Patient has some sundowning going on
- Ordering nighttime trazodone as has helped in the past. Trazodone is also anticholinergic and if patient have any side effects we will change to different medication
# Anemia of chronic disease
- Hemoglobin stable at 10.3, no active bleeding
- Continue to monitor
# HEATHER on CKD stage V
- Creatinine 7.1
- Hold Lasix
- Patient apparently has CKD stage V and has been following with [facility] nephrology. Patient is not a candidate for dialysis.
- Maintain on low potassium diet
- No secondary metabolic derangements except mild acidosis. Continue monitoring.
# Gout
- Allopurinol continued
#Essential Hypertension/hyperlipidemia
- Atorvastatin continued
- Labetalol continue with hold parameters
DVT proph: SC Heparin
Code Status: DNR
Total time spent ; 53 mins
Anticipated Discharge: 24 - 48 hours
Subjective/Interval History
-
Date of Service: July 19, 2025
Patient sitting in chair comfortably
not voicing any ongoing issues
Objective Data
-
Labs:
Laboratory Results
07/19/25
07:14
WBC 6.4
Hgb 10.2 L
Hct 31.6 L
Plt Count 162
Sodium 143
Potassium 4.5
Chloride 110 H
Carbon Dioxide 21 L
BUN 94 H
Creatinine 7.1 H*
Glucose 93
Calcium 8.8
Vital Signs:
Vital Signs
Temp Pulse Resp BP Pulse Ox
97.8 F 62 18 150/75 98
07/19/25 08:21 07/19/25 08:58 07/19/25 08:21 07/19/25 08:58 07/19/25 11:27
Review of Systems
-
Unable to obtain full review of systems at this time due to: Acuity
Physical Exam
-
General: No Apparent Distress
HEENT: Negative Oxygen
Respiratory: Clear to Auscultation
Cardiac: Regular Rhythm and S1/S2; Negative Murmur
Neuro: Awake, Alert and No Motor Deficits; Negative Oriented
[2025-07-19 15:00] VITALS: BP 156/78
[2025-07-19] MEDS: LASIX 40 MG PO (16:01)
[2025-07-19] MEDS: ZYLOPRIM 100 MG PO (16:02)
[2025-07-19] MEDS: LIPITOR 20 MG PO (16:02)
[2025-07-19] MEDS: ROCEPHIN 1000 MG IV (20:27)
[2025-07-19] MEDS: STERILE WATER FOR INJECTION 10 ML IV (20:28)
[2025-07-19] MEDS: PROSCAR 5 MG PO (22:14)
[2025-07-19] MEDS: MELATONIN 10 MG PO (22:14)
[2025-07-19] MEDS: MAGNESIUM OXIDE 400 MG PO (22:16)
[2025-07-19] MEDS: ARICEPT 10 MG PO (22:16)
[2025-07-19] MEDS: DESYREL 25 MG PO (22:16)
[2025-07-19 23:30] VITALS: BP 142/79
[2025-07-20 07:40] VITALS: BP 164/83
[2025-07-20 08:38] LABS: Hematocrit 28.7 % (39.0-52.0); Hemoglobin 9.7 g/dL (13.0-18.0); Mean Corp Hgb Conc. 33.8 g/dL (33.0-37.0); Mean Corpuscular Volume 98.3 fL (80.0-94.0); Platelet Count 163 10^3/uL (130-400); Red Cell Dist. Width 11.5 % (11.5-14.5)
[2025-07-20] MEDS: VIBRAMYCIN 100 MG PO ×2 (08:39→20:07)
[2025-07-20] MEDS: TRANDATE 100 MG PO ×2 (08:39→20:07)
[2025-07-20] MEDS: VITAMIN D3 (cholecalciferol) 25 MCG PO (08:39)
[2025-07-20] MEDS: LASIX 40 MG PO ×2 (08:41→16:59)
[2025-07-20] MEDS: MUCINEX 600 MG PO ×2 (08:41→20:05)
[2025-07-20] MEDS: HEPARIN 5000 UNITS SC ×2 (08:41→20:05)
[2025-07-20] MEDS: RISPERDAL M-TAB (ORALLY DISINTEGRATING) 0.5 MG PO (08:59)
[2025-07-20 09:14] LABS: Blood Urea Nitrogen 86 mg/dl (9-20); Calcium 8.4 mg/dl (8.4-10.2); Carbon Dioxide 20 mmol/L (22-30); Chloride 111 mmol/L (98-107); Estimated Creatinine Clearance 9 ml/min; Glucose 96 mg/dl (70-99); Potassium 4.1 mmol/L (3.5-5.1); Sodium 142 mmol/L (135-145); eGFR 7.59
[2025-07-20] MEDS: SODIUM BICARBONATE 650 MG PO ×2 (10:13→20:07)
--- NOTE | 2025-07-20 14:18 | W.PN.HOSP.TC ---
Today's Communication/Plan
-
Increase nighttime trazodone
Continue abx
discharge planning
Assessment / Plan
Assessment / Plan
CT chest
There is mild bronchial wall thickening with small nodular and ground glass opacities in the anterior left upper lobe consistent with pneumonia/bronchopneumonia.
There is a 2.5 cm nodule in the posterior right lower lobe which is demonstrated slow growth over time previously measuring 9 mm in 2008. Given the calcified mediastinal/right hilar lymph nodes this may be sequelae of granulomatous infection
although low-grade malignancy is possible. Consider nonemergent PET for further evaluation.
There is a 1.6 cm soft tissue nodule in the anterior mediastinum which may represent an enlarged lymph node although also may be further evaluated on repeat imaging.
Fusiform dilation of the ascending thoracic aorta measuring 4.2 cm. Small hiatal hernia. If the patient has emphysema, patient should be assessed for an annual low dose lung cancer CT program, as pulmonary emphysema is an independent risk factor for
lung cancer.
The [facility] Pulmonary Nodule Advisory Board will be notified.

# Acute metabolic encephalopathy - Ongoing
# History for Lewy body dementia
# Postnasal drip
- UA/COVID neg,
- CT chest showing possible thickening with small nodular ground glass opacity in the left upper lobe consistent with pneumonia
- Patient with postnasal drip and resultant episodic cough. Patient is not able to tolerate any OTC meds in the past due to anticholinergic effects causing behavioral issues.,
- Aricept continued for dementia
- Will provide empiric Rocephin and azithromycin for time being
# BPH
- Dutasteride continued
# Lewy body dementia
- Patient has some sundowning going on
- Ordering nighttime trazodone as has helped in the past. Trazodone is also anticholinergic and if patient have any side effects we will change to different medication
- Trazodone dose increased to 50 mg at nighttime.
- Discussed with spouse who understand patient may have progressive dementia and looking for more help. Spouse already and plan of visiting facilities in the area. Private aid at home as alternative as well
# Anemia of chronic disease
- Hemoglobin stable at 10.3, no active bleeding
- Continue to monitor
# CKD Stage V
- Creatinine 7.1
- Patient apparently has CKD stage V and has been following with [facility] nephrology. Patient is not a candidate for dialysis.
- Maintain on low potassium diet
- No secondary metabolic derangements except mild acidosis. Continue monitoring.
- resumed back on lasix.
# Gout
- Allopurinol continued
#Essential Hypertension/hyperlipidemia
- Atorvastatin continued
- Labetalol continue with hold parameters
DVT proph: SC Heparin
Code Status: DNR
Anticipated Discharge: 24 - 48 hours
Subjective/Interval History
-
Date of Service: July 20, 2025
Patient had reported some sleep disturbance
Had some nighttime behavioral issues
In the morning patient was agitated and required Risperdal dose
Objective Data
-
Labs:
Laboratory Results
07/20/25
07:53
WBC 5.5
Hgb 9.7 L
Hct 28.7 L
Plt Count 163
Sodium 142
Potassium 4.1
Chloride 111 H
Carbon Dioxide 20 L
BUN 86 H
Creatinine 6.9 H*
Glucose 96
Calcium 8.4
Vital Signs:
Vital Signs
Temp Pulse Resp BP Pulse Ox
97.4 F 60 18 164/83 98
07/20/25 07:40 07/20/25 07:40 07/20/25 07:40 07/20/25 07:40 07/20/25 07:40
I&O
07/19/25 07/20/2525
06:59 05:59 06:59
Output Total 600 / 600
Balance -600 / -600
Review of Systems
-
Respiratory: Reports No Symptoms
Cardiac: Reports No Symptoms
Abdomen/GI: Reports No Symptoms
Physical Exam
-
General: No Apparent Distress
HEENT: Negative Oxygen
Respiratory: Clear to Auscultation
Cardiac: Regular Rhythm and S1/S2; Negative Murmur
Neuro: Awake, Alert and No Motor Deficits; Negative Oriented
Psych: Calm
[2025-07-20 16:34] VITALS: BP 150/75
[2025-07-20] MEDS: LIPITOR 20 MG PO (17:06)
[2025-07-20] MEDS: ZYLOPRIM 100 MG PO (17:10)
[2025-07-20] MEDS: ROCEPHIN 1000 MG IV (20:06)
[2025-07-20] MEDS: STERILE WATER FOR INJECTION 10 ML IV (20:07)
[2025-07-20] MEDS: MELATONIN 10 MG PO (22:42)
[2025-07-20] MEDS: ARICEPT 10 MG PO (22:42)
[2025-07-20] MEDS: DESYREL 50 MG PO (22:42)
[2025-07-20] MEDS: MAGNESIUM OXIDE 400 MG PO (22:43)
[2025-07-20] MEDS: PROSCAR 5 MG PO (22:43)
[2025-07-20 23:30] VITALS: BP 150/83
[2025-07-21] MEDS: SENOKOT-S 1 TABLET PO (01:35)
[2025-07-21 07:43] VITALS: BP 168/76
[2025-07-21] MEDS: HEPARIN 5000 UNITS SC ×2 (08:48→20:41)
[2025-07-21] MEDS: TRANDATE 100 MG PO ×2 (08:48→20:42)
[2025-07-21] MEDS: LASIX 40 MG PO ×2 (08:48→15:56)
[2025-07-21] MEDS: VIBRAMYCIN 100 MG PO ×2 (08:48→20:44)
[2025-07-21] MEDS: VITAMIN D3 (cholecalciferol) 25 MCG PO (08:48)
[2025-07-21] MEDS: MUCINEX 600 MG PO ×2 (08:48→20:41)
[2025-07-21] MEDS: SODIUM BICARBONATE 650 MG PO ×2 (08:48→20:42)
[2025-07-21 09:44] LABS: Hematocrit 29.2 % (39.0-52.0); Hemoglobin 9.6 g/dL (13.0-18.0); Mean Corp Hgb Conc. 32.9 g/dL (33.0-37.0); Mean Corpuscular Volume 99.7 fL (80.0-94.0); Platelet Count 159 10^3/uL (130-400); Red Cell Dist. Width 11.7 % (11.5-14.5)
[2025-07-21 10:23] LABS: Blood Urea Nitrogen 87 mg/dl (9-20); Calcium 8.6 mg/dl (8.4-10.2); Carbon Dioxide 21 mmol/L (22-30); Chloride 111 mmol/L (98-107); Estimated Creatinine Clearance 8 ml/min; Glucose 95 mg/dl (70-99); Potassium 4.1 mmol/L (3.5-5.1); Sodium 140 mmol/L (135-145); eGFR 7.21
[2025-07-21 12:03] VITALS: BP 121/78; PULSE 61
--- NOTE | 2025-07-21 13:37 | W.PN.HOSP.TC ---
Today's Communication/Plan
-
monitor vitals
see plan
PT recommended SNF
Consult OT
Discussed with spouse, she is interested in rehab
manager economic aware
Discharge planning
Continue trazodone
Assessment / Plan
Assessment / Plan
CT chest
There is mild bronchial wall thickening with small nodular and ground glass opacities in the anterior left upper lobe consistent with pneumonia/bronchopneumonia.
There is a 2.5 cm nodule in the posterior right lower lobe which is demonstrated slow growth over time previously measuring 9 mm in 2008. Given the calcified mediastinal/right hilar lymph nodes this may be sequelae of granulomatous infection
although low-grade malignancy is possible. Consider nonemergent PET for further evaluation.
There is a 1.6 cm soft tissue nodule in the anterior mediastinum which may represent an enlarged lymph node although also may be further evaluated on repeat imaging.
Fusiform dilation of the ascending thoracic aorta measuring 4.2 cm. Small hiatal hernia. If the patient has emphysema, patient should be assessed for an annual low dose lung cancer CT program, as pulmonary emphysema is an independent risk factor for
lung cancer.
The [facility] Pulmonary Nodule Advisory Board will be notified.

# Acute metabolic encephalopathy - Ongoing
# History for Lewy body dementia
# Postnasal drip
- UA/COVID neg,
- CT chest showing possible thickening with small nodular ground glass opacity in the left upper lobe consistent with pneumonia
- Patient with postnasal drip and resultant episodic cough. Patient is not able to tolerate any OTC meds in the past due to anticholinergic effects causing behavioral issues.,
- Aricept continued for dementia
-Continue with Doxy, switch ceftriaxone to cefdinir, renally dose
# BPH
- Dutasteride continued
# Lewy body dementia
- Patient has some sundowning going on
- Ordering nighttime trazodone as has helped in the past. Trazodone is also anticholinergic and if patient have any side effects we will change to different medication
- Trazodone dose increased to 50 mg at nighttime.
- Discussed with spouse who understand patient may have progressive dementia and looking for more help. Spouse already and plan of visiting facilities in the area. Private aid at home as alternative as well
PT recommended SNF
2.5cm RLL nodule
Discussed with spouse, she is also discussed with patient.
# Anemia of chronic disease
- Hemoglobin stable at 10.3, no active bleeding
- Continue to monitor
# CKD Stage V
- Creatinine 7.1
- Patient apparently has CKD stage V and has been following with [facility] nephrology. Patient is not a candidate for dialysis.
- Maintain on low potassium diet
- No secondary metabolic derangements except mild acidosis. Continue monitoring.
- resumed back on lasix.
# Gout
- Allopurinol continued
#Essential Hypertension/hyperlipidemia
- Atorvastatin continued
- Labetalol continue with hold parameters
DVT proph: SC Heparin
Code Status: DNR
PT recommended SNF
General: No Apparent Distress
HEENT: Negative Oxygen
Respiratory: Clear to Auscultation
Cardiac: Regular Rhythm and S1/S2; Negative Murmur
Neuro: Awake, Alert and No Motor Deficits; Negative Oriented
Psych: Calm
Anticipated Discharge: Today
Subjective/Interval History
-
Date of Service: July 21, 2025
denies pain
Objective Data
-
Labs:
Laboratory Results
07/21/25
08:48
WBC 4.9
Hgb 9.6 L
Hct 29.2 L
Plt Count 159
Sodium 140
Potassium 4.1
Chloride 111 H
Carbon Dioxide 21 L
BUN 87 H
Creatinine 7.2 H*
Glucose 95
Calcium 8.6
Vital Signs:
Vital Signs
Temp Pulse Resp BP Pulse Ox
97.5 F 56 17 168/76 98
07/21/25 07:43 07/21/25 07:43 07/21/25 07:43 07/21/25 07:43 07/21/25 07:43
I&O
07/20/25 07/21/25 07/22/25
05:59 06:59 06:59
Intake Total 720 / 720
Output Total 600 / 600 400 / 400
Balance -600 / -600 320 / 320
--- NOTE | 2025-07-21 14:16 | CM ---
Addendum entered by Cordell Ochoa 07/21/25 15:50:
Spouse also interested in speaking w/ hospice for information. Spouse does not want hospice services at this time but would like the information to plan for the near future.
[employer] police liaison, will give spouse a call
Addendum entered by Cordell Ochoa 07/21/25 15:37:
CM met w/ spouse on unit and had extensive conversation about planning for patient. Spouse stated the goal is for patient to go to short term rehab and for him to return home. Spouse stated she has been exploring memory care facilities for patient
as a plan B if he becomes unmanageable at home and requires more 24/7 care and support. Spouse asked about home health services following rehab, CM stated the facility can arrange prior to his discharge. Spouse discussed hiring aides/caregivers for
additional support in the home. CM provided [facility], [facility] and [facility] information.
Spouse provided facilities to CM. Placed referrals to [facility], [facility], [facility], [facility] and [facility]
Patient will need insurance auth
Plan: SNF
Original Note:
Chart reviewed. LOC changed to inpatient admission.
Therapy indicating SNF at d/c. Patient will need auth
CM attempted call to spouse, left message to start d/c planning
--- NOTE | 2025-07-21 15:40 | HOSPNOTE ---
Addendum entered by Kaila Mejias RN 07/22/25 10:24:
Spoke with spouse and discussed hospice and the philosophy. The plan is for patient to go to rehab, however if there is no rehab that will accept patient then the spouse will call me and we will discuss hospice again. If the patient goes home with
hospice spouse will be hiring caregivers. Spouse is very tearful emotional support provided. Will continue to follow.
Original Note:
Was asked to call spouse Nidia to just give information about hospice and the philosophy, I left a message for a call back.
[2025-07-21 15:42] VITALS: BP 129/71
[2025-07-21] MEDS: OMNICEF 300 MG PO (15:56)
[2025-07-21] MEDS: ZYLOPRIM 100 MG PO (17:27)
[2025-07-21] MEDS: LIPITOR 20 MG PO (17:27)
[2025-07-21] MEDS: MELATONIN 10 MG PO (21:07)
[2025-07-21] MEDS: MAGNESIUM OXIDE 400 MG PO (21:07)
[2025-07-21] MEDS: ARICEPT 10 MG PO (21:07)
[2025-07-21] MEDS: DESYREL 50 MG PO (21:07)
[2025-07-21] MEDS: PROSCAR 5 MG PO (21:09)
[2025-07-21 23:37] VITALS: BP 170/76
[2025-07-21] MEDS: TYLENOL 650 MG PO (23:43)
[2025-07-22 07:00] VITALS: BP 155/81
[2025-07-22 09:06] LABS: Hematocrit 31.3 % (39.0-52.0); Hemoglobin 10.0 g/dL (13.0-18.0); Mean Corp Hgb Conc. 31.9 g/dL (33.0-37.0); Mean Corpuscular Volume 101.3 fL (80.0-94.0); Platelet Count 167 10^3/uL (130-400); Red Cell Dist. Width 11.7 % (11.5-14.5)
[2025-07-22 09:22] VITALS: BP 151/80; PULSE 59; O2SAT 96
[2025-07-22] MEDS: MUCINEX 600 MG PO ×2 (09:37→19:56)
[2025-07-22] MEDS: SODIUM BICARBONATE 650 MG PO ×2 (09:37→19:56)
[2025-07-22] MEDS: OMNICEF 300 MG PO (09:37)
[2025-07-22] MEDS: VIBRAMYCIN 100 MG PO ×2 (09:37→19:59)
[2025-07-22] MEDS: HEPARIN 5000 UNITS SC ×2 (09:38→19:55)
[2025-07-22] MEDS: LASIX 40 MG PO ×2 (09:38→16:55)
[2025-07-22] MEDS: VITAMIN D3 (cholecalciferol) 25 MCG PO (09:38)
[2025-07-22] MEDS: TRANDATE 100 MG PO ×2 (09:38→19:56)
[2025-07-22 09:46] LABS: Blood Urea Nitrogen 87 mg/dl (9-20); Calcium 8.8 mg/dl (8.4-10.2); Carbon Dioxide 19 mmol/L (22-30); Chloride 111 mmol/L (98-107); Estimated Creatinine Clearance 9 ml/min; Glucose 105 mg/dl (70-99); Potassium 4.4 mmol/L (3.5-5.1); Sodium 142 mmol/L (135-145); eGFR 7.33
--- NOTE | 2025-07-22 10:55 | CM ---
CM met w/ spouse outside of patient's room. CM reviewed referral determinations. [facility], [facility] and [facility] declined. [facility] still pending review. [facility] does not accept patient's insurance, spouse was surprised at this as patient
has a medicare advantage plan. Spouse stated if patient is unable to get into [facility] or [facility], she would like patient to discharge home. Spouse not interested in additional referrals at this time.
CM messaged Christy[facility] director to review referral
Plan: SNF vs home (if [facility] cannot accept)
--- NOTE | 2025-07-22 13:20 | W.PN.HOSP.TC ---
Today's Communication/Plan
-
Monitor vitals
see plan
Continue with trazodone
Discharge planning, behavioral health case manager involved
Assessment / Plan
Assessment / Plan
CT chest
There is mild bronchial wall thickening with small nodular and ground glass opacities in the anterior left upper lobe consistent with pneumonia/bronchopneumonia.
There is a 2.5 cm nodule in the posterior right lower lobe which is demonstrated slow growth over time previously measuring 9 mm in 2008. Given the calcified mediastinal/right hilar lymph nodes this may be sequelae of granulomatous infection
although low-grade malignancy is possible. Consider nonemergent PET for further evaluation.
There is a 1.6 cm soft tissue nodule in the anterior mediastinum which may represent an enlarged lymph node although also may be further evaluated on repeat imaging.
Fusiform dilation of the ascending thoracic aorta measuring 4.2 cm. Small hiatal hernia. If the patient has emphysema, patient should be assessed for an annual low dose lung cancer CT program, as pulmonary emphysema is an independent risk factor for
lung cancer.
The [facility] Pulmonary Nodule Advisory Board will be notified.

# Acute metabolic encephalopathy - Ongoing
# History for Lewy body dementia
# Postnasal drip
- UA/COVID neg,
- CT chest showing possible thickening with small nodular ground glass opacity in the left upper lobe consistent with pneumonia
- Patient with postnasal drip and resultant episodic cough. Patient is not able to tolerate any OTC meds in the past due to anticholinergic effects causing behavioral issues.,
- Aricept continued for dementia
-Continue with Doxy, switch ceftriaxone to cefdinir, renally dose
# BPH
- Dutasteride continued
# Lewy body dementia
- Patient has some sundowning going on
- Ordering nighttime trazodone as has helped in the past. Trazodone is also anticholinergic and if patient have any side effects we will change to different medication
- Trazodone dose increased to 50 mg at nighttime.
- Discussed with spouse who understand patient may have progressive dementia and looking for more help. Spouse already and plan of visiting facilities in the area. Private aid at home as alternative as well
PT recommended SNF
2.5cm RLL nodule
Discussed with spouse, she is also discussed with patient.
# Anemia of chronic disease
- Hemoglobin stable at 10, no active bleeding
- Continue to monitor
# CKD Stage V
- Creatinine 7.1
- Patient apparently has CKD stage V and has been following with [facility] nephrology. Patient is not a candidate for dialysis.
- Maintain on low potassium diet
- No secondary metabolic derangements except mild acidosis. Continue monitoring.
- resumed back on lasix.
# Gout
- Allopurinol continued
#Essential Hypertension/hyperlipidemia
- Atorvastatin continued
- Labetalol continue with hold parameters
DVT proph: SC Heparin
Code Status: DNR
PT recommended SNF
General: No Apparent Distress
HEENT: Negative Oxygen
Respiratory: Clear to Auscultation
Cardiac: Regular Rhythm and S1/S2; Negative Murmur
Neuro: Awake, Alert and No Motor Deficits; Negative Oriented
Psych: Calm
Anticipated Discharge: Within 24 hours
Subjective/Interval History
-
Date of Service: July 22, 2025
Denies pain
Objective Data
-
Labs:
Laboratory Results
07/22/25
08:36
WBC 5.4
Hgb 10.0 L
Hct 31.3 L
Plt Count 167
Sodium 142
Potassium 4.4
Chloride 111 H
Carbon Dioxide 19 L
BUN 87 H
Creatinine 7.1 H*
Glucose 105 H
Calcium 8.8
Vital Signs:
Vital Signs
Temp Pulse Resp BP Pulse Ox
98.1 F 65 20 155/81 98
07/22/25 07:00 07/22/25 07:00 07/22/25 07:00 07/22/25 07:00 07/22/25 07:00
I&O
07/21/25 07/22/25 07/23/25
06:59 06:59 06:59
Intake Total 720 / 720 960 / 960
Output Total 400 / 400
Balance 320 / 320 960 / 960
[2025-07-22 15:01] VITALS: BP 144/76
[2025-07-22] MEDS: LIPITOR 20 MG PO (16:55)
[2025-07-22] MEDS: ZYLOPRIM 100 MG PO (16:55)
[2025-07-22] MEDS: MAGNESIUM OXIDE 400 MG PO (21:24)
[2025-07-22] MEDS: PROSCAR 5 MG PO (21:24)
[2025-07-22] MEDS: MELATONIN 10 MG PO (21:24)
[2025-07-22] MEDS: DESYREL 50 MG PO (21:25)
[2025-07-22] MEDS: ARICEPT 10 MG PO (21:25)
[2025-07-22 23:00] VITALS: BP 162/85
[2025-07-23 07:00] VITALS: BP 158/75
[2025-07-23] MEDS: HEPARIN 5000 UNITS SC ×2 (08:57→19:47)
[2025-07-23] MEDS: OMNICEF 300 MG PO (08:58)
[2025-07-23] MEDS: VIBRAMYCIN 100 MG PO ×2 (08:58→19:48)
[2025-07-23] MEDS: VITAMIN D3 (cholecalciferol) 25 MCG PO (08:58)
[2025-07-23] MEDS: MUCINEX 600 MG PO ×2 (08:58→19:48)
[2025-07-23] MEDS: LASIX 40 MG PO ×2 (08:58→17:26)
[2025-07-23] MEDS: TRANDATE 100 MG PO ×2 (08:58→19:49)
[2025-07-23] MEDS: SODIUM BICARBONATE 650 MG PO ×2 (08:58→19:48)
--- NOTE | 2025-07-23 12:40 | PN.CDI ---
CDI
- -
CDI:
Physician Documentation Request
Admit Date: 07/21/25 09:[address] Chan,
[facility] is using an adapted version of the 2016 Third International Consensus Definitions for Sepsis and Septic Shock (Sepsis-3) where sepsis is defined as life threatening organ dysfunction caused by a deregulated host response to infection.
Please reference the official [facility] Sepsis Recognition Tool for further information, which can be found on the Intranet under Infection Prevention.
Clinical Indicators Include:
Patient admitted with acute metabolic encephalopathy.
CT chest 'There is mild bronchial wall thickening with small nodular and ground glass opacities in the anterior left upper lobe consistent with pneumonia/bronchopneumonia'
Antibiotics: IV Rocephin/ transitioned to Cefdinir & Doxycycline
Based on your medical judgment, can you further clarify the diagnosis being monitored/treated this admission?
Sepsis due to pneumonia with organ dysfunction of acute metabolic encephalopathy
Pneumonia only
Other
Clinically unable to determine
Use of terms such as suspected, likely, concern for, or probable (associated with a specific diagnosis that is being evaluated, monitored, or treated as if it exists) are acceptable and can be coded in the inpatient setting when documented at the
time of discharge.
Please use your independent medical judgement in providing your response.
Thank you,
SOLANGE Cooper RN
CDI Specialist
available via tiger text
--- NOTE | 2025-07-23 12:45 | CM ---
Addendum entered by Esme Stiles 07/23/25 16:07:
CM spoke with patients daughter and , plan for d/c tomorrow 10:00 a.m. ambulance transport with [facility], [facility]. TT to Denise, liaison at [facility] with referral.
PT will issue patient a walker prior to d/c.
IMM verbally reviewed with , placed in chart.
[facility] hospital bed will not be delivered day of discharge.
Plan; home with [facility], 10/04 [facility], tomorrow 07/24 10:00 a.m. ambulance transport.
Addendum entered by Esme Stiles 07/23/25 15:15:
[facility] would like to review financial application, not confirmed will be able to accept patient. updated, would like to speak to her daughters regarding [facility] with 24 hr care versus home with services. no longer wants home with
hospice, would like PT, OT, and nursing in addition to 24/7 care who family has hired through [facility]. Financial application from [facility] emailed to .
Update to Hospitalist and Hospice- will await family decision.
Plan; home with 24/7 care, [facility] vs [facility]
Original Note:
CM reviewed chart, patient seen with .
CM discussed [facility] unable to accept.
reports they are meeting with 24 hr caregivers today, would like to bring patient home with services- interested in private paying for PT.
CM reviewed with customer liaison, Kaila, patient scheduled for 10:00 a.m. transport tomorrow 07/24 home with hospice.
Address confirmed, no steps to enter.
Per , Nidia, have a family friend who works at [facility], awaiting to hear if patient is accepted at [facility], otherwise plan will be return home with Hospice.
--- NOTE | 2025-07-23 13:56 | W.PN.HOSP.TC ---
Today's Communication/Plan
-
Monitor vital signs see plan
Discharge planning, case picker involved
SNF versus home with 24/7 care
Continue with trazodone
Monitor mental status
Discussed with spouse
Assessment / Plan
Assessment / Plan
CT chest
There is mild bronchial wall thickening with small nodular and ground glass opacities in the anterior left upper lobe consistent with pneumonia/bronchopneumonia.
There is a 2.5 cm nodule in the posterior right lower lobe which is demonstrated slow growth over time previously measuring 9 mm in 2008. Given the calcified mediastinal/right hilar lymph nodes this may be sequelae of granulomatous infection
although low-grade malignancy is possible. Consider nonemergent PET for further evaluation.
There is a 1.6 cm soft tissue nodule in the anterior mediastinum which may represent an enlarged lymph node although also may be further evaluated on repeat imaging.
Fusiform dilation of the ascending thoracic aorta measuring 4.2 cm. Small hiatal hernia. If the patient has emphysema, patient should be assessed for an annual low dose lung cancer CT program, as pulmonary emphysema is an independent risk factor for
lung cancer.
The [facility] Pulmonary Nodule Advisory Board will be notified.

# Acute metabolic encephalopathy -resolved
# History for Lewy body dementia
# Postnasal drip
- UA/COVID neg,
- CT chest showing possible thickening with small nodular ground glass opacity in the left upper lobe consistent with pneumonia
- Patient with postnasal drip and resultant episodic cough. Patient is not able to tolerate any OTC meds in the past due to anticholinergic effects causing behavioral issues.,
- Aricept continued for dementia
-Continue with Doxy, switch ceftriaxone to cefdinir, renally dose. Do not believe patient had sepsis
# BPH
- Dutasteride continued
# Lewy body dementia
- Patient has some sundowning going on
- Ordering nighttime trazodone as has helped in the past. Trazodone is also anticholinergic and if patient have any side effects we will change to different medication
- Trazodone dose increased to 50 mg at nighttime.
- Discussed with spouse who understand patient may have progressive dementia and looking for more help. Spouse already and plan of visiting facilities in the area. Private aid at home as alternative as well
PT recommended SNF
2.5cm RLL nodule
Discussed with spouse, she also discussed with patient.
# Anemia of chronic disease
- Hemoglobin stable at 10, no active bleeding
- Continue to monitor
# CKD Stage V
- Creatinine 7.1
- Patient apparently has CKD stage V and has been following with [facility] nephrology. Patient is not a candidate for dialysis.
- Maintain on low potassium diet
- No secondary metabolic derangements except mild acidosis. Continue monitoring.
- resumed back on lasix.
# Gout
- Allopurinol continued
#Essential Hypertension/hyperlipidemia
- Atorvastatin continued
- Labetalol continue with hold parameters
DVT proph: SC Heparin
Code Status: DNR
PT recommended SNF, SNF unable to accept. Family now deciding home with 24/ care
General: No Apparent Distress
HEENT: Negative Oxygen
Respiratory: Clear to Auscultation
Cardiac: Regular Rhythm and S1/S2; Negative Murmur
Neuro: Awake, Alert and No Motor Deficits; Negative Oriented
Psych: Calm
Anticipated Discharge: Within 24 hours
Subjective/Interval History
-
Date of Service: July 23, 2025
Denies pain
Objective Data
-
Vital Signs:
Vital Signs
Temp Pulse Resp BP Pulse Ox
97.8 F 63 18 158/75 97
07/23/25 07:00 07/23/25 08:58 07/23/25 07:00 07/23/25 08:58 07/23/25 07:00
I&O
07/22/25 07/23/25 07/24/25
06:59 06:59 06:59
Intake Total 960 / 960 480 / 480
Balance 960 / 960 480 / 480
[2025-07-23 15:00] VITALS: BP 111/91
--- NOTE | 2025-07-23 16:26 | VNURNOTE ---
Addendum entered by Ashleigh Johnson RN 07/24/25 11:12:
Spouse called this author requesting a w/c for home as well.
Rx and clinicals faxed to [facility] for hospital bed and wheelchair.
Original Note:
Chart reviewed. Spoke with spouse Nidia. Discussed [facility] nurse/therapy, visits, schedule and homebound status. She is agreeable and understands that visits at home will be 2-3 x per week to assess and teach medical management. Spouse is aware
that [facility] will contact them for start of care within a week after discharge from . Provided contact number for [facility].
Spouse is requesting a hospital bed for home. She understands coordination and delivery may take a few days and is ok with taking pt home without bed.
HOSPITAL BED: Rx, clinicals to be sent to [facility] when available.
[facility] referral completed in [facility].
[2025-07-23] MEDS: ZYLOPRIM 100 MG PO (17:26)
[2025-07-23] MEDS: LIPITOR 20 MG PO (17:26)
[2025-07-23] MEDS: DESYREL 50 MG PO (21:08)
[2025-07-23] MEDS: MELATONIN 10 MG PO (21:08)
[2025-07-23] MEDS: MAGNESIUM OXIDE 400 MG PO (21:08)
[2025-07-23] MEDS: PROSCAR 5 MG PO (21:09)
[2025-07-23] MEDS: ARICEPT 10 MG PO (21:09)
[2025-07-23 23:19] VITALS: BP 145/80
[2025-07-24 07:30] VITALS: BP 180/90
[2025-07-24] MEDS: MUCINEX 600 MG PO (08:22)
[2025-07-24] MEDS: VIBRAMYCIN 100 MG PO (08:22)
[2025-07-24] MEDS: OMNICEF 300 MG PO (08:22)
[2025-07-24] MEDS: LASIX 40 MG PO (08:23)
[2025-07-24] MEDS: SODIUM BICARBONATE 650 MG PO (08:23)
[2025-07-24] MEDS: TRANDATE 100 MG PO (08:23)
[2025-07-24] MEDS: VITAMIN D3 (cholecalciferol) 25 MCG PO (08:23)
[2025-07-24] MEDS: HEPARIN 5000 UNITS SC (08:24)
--- NOTE | 2025-07-24 08:49 | W.PN.HOSP.TC ---
Addendum entered and electronically signed by Vaughn Chan MD 07/24/25 11:02:
Patient requires a transport wheelchair within the home to complete their daily activities. They are unable to self propel, they have a caregiver who can propel them
Original Note:
Today's Communication/Plan
-
Monitor vitals
See plan
Discharge today
Continue trazodone
Time of discharge 38 minutes
Assessment / Plan
Assessment / Plan
CT chest
There is mild bronchial wall thickening with small nodular and ground glass opacities in the anterior left upper lobe consistent with pneumonia/bronchopneumonia.
There is a 2.5 cm nodule in the posterior right lower lobe which is demonstrated slow growth over time previously measuring 9 mm in 2007. Given the calcified mediastinal/right hilar lymph nodes this may be sequelae of granulomatous infection
although low-grade malignancy is possible. Consider nonemergent PET for further evaluation.
There is a 1.6 cm soft tissue nodule in the anterior mediastinum which may represent an enlarged lymph node although also may be further evaluated on repeat imaging.
Fusiform dilation of the ascending thoracic aorta measuring 4.2 cm. Small hiatal hernia. If the patient has emphysema, patient should be assessed for an annual low dose lung cancer CT program, as pulmonary emphysema is an independent risk factor for
lung cancer.
The [facility] Pulmonary Nodule Advisory Board will be notified.

# Acute metabolic encephalopathy -resolved
# History for Lewy body dementia
# Postnasal drip
- UA/COVID neg,
- CT chest showing possible thickening with small nodular ground glass opacity in the left upper lobe consistent with pneumonia
- Patient with postnasal drip and resultant episodic cough. Patient is not able to tolerate any OTC meds in the past due to anticholinergic effects causing behavioral issues.,
- Aricept continued for dementia
-Continue with Doxy, switch ceftriaxone to cefdinir, renally dose. Do not believe patient had sepsis. dc further abx. finished treatment
# BPH
- Dutasteride continued
# Lewy body dementia
- Patient has some sundowning going on
- Ordering nighttime trazodone as has helped in the past. Trazodone is also anticholinergic and if patient have any side effects we will change to different medication
- Trazodone dose increased to 50 mg at nighttime.
- Discussed with spouse who understand patient may have progressive dementia and looking for more help. Spouse already and plan of visiting facilities in the area. Private aid at home as alternative as well
PT recommended SNF
2.5cm RLL nodule
Discussed with spouse, she also discussed with patient.
# Anemia of chronic disease
- Hemoglobin stable at 10, no active bleeding
- Continue to monitor
# CKD Stage V
- Creatinine 7.1
- Patient apparently has CKD stage V and has been following with [facility] nephrology. Patient is not a candidate for dialysis.
- Maintain on low potassium diet
- No secondary metabolic derangements except mild acidosis. Continue monitoring.
- resumed back on lasix.
# Gout
- Allopurinol continued
#Essential Hypertension/hyperlipidemia
- Atorvastatin continued
- Labetalol continue with hold parameters
DVT proph: SC Heparin
Code Status: DNR
PT recommended SNF, SNF unable to accept. Family now deciding home with 10/04 care
patient requires frequent changes in body position to prevent pressure ulcers. Patient has dementia and requires a hospital bed due to need for head of bed elevation for safe eating, aspiration prevention
General: No Apparent Distress
HEENT: Negative Oxygen
Respiratory: Clear to Auscultation
Cardiac: Regular Rhythm and S1/S2; Negative Murmur
Neuro: Awake, Alert and No Motor Deficits; Negative Oriented
Psych: Calm
Anticipated Discharge: Today
Subjective/Interval History
-
Date of Service: July 24, 2025
denies pain
Objective Data
-
Labs:
Laboratory Results
07/24/25
07:43
WBC Pending
Hgb Pending
Hct Pending
Plt Count Pending
Sodium Pending
Potassium Pending
Chloride Pending
Carbon Dioxide Pending
BUN Pending
Creatinine Pending
Glucose Pending
Calcium Pending
Vital Signs:
Vital Signs
Temp Pulse Resp BP Pulse Ox
97.7 F 65 16 180/90 97
07/24/25 07:30 07/24/25 08:23 07/24/25 07:30 07/24/25 08:23 07/24/25 07:30
I&O
07/23/25 07/24/25 07/25/25
06:59 06:59 06:59
Intake Total 480 / 480 960 / 960
Output Total 550 / 550
Balance 480 / 480 410 / 410
[2025-07-24 09:00] LABS: Hematocrit 30.4 % (39.0-52.0); Hemoglobin 10.4 g/dL (13.0-18.0); Mean Corp Hgb Conc. 34.2 g/dL (33.0-37.0); Mean Corpuscular Volume 97.4 fL (80.0-94.0); Nucleated Red Blood Cells % 0 % (-); Platelet Count 159 10^3/uL (130-400); Red Cell Dist. Width 11.7 % (11.5-14.5)
--- NOTE | 2025-07-24 09:19 | W.DCSUMMARY ---
Discharge Summary
Discharge Data
Date of Admission: 07/21/25
Date of Discharge: 07/24/25
-
Pending Results: No
Hospital Course
80-year-old male with past medical history of Lewy body dementia, BPH, anemia of chronic disease, CKD stage V, gout, essential hypertension, hyperlipidemia came to the hospital with acute metabolic encephalopathy and pneumonia. For his pneumonia he
was treated with antibiotics. Patient finished a course of antibiotics prior to discharge. His encephalopathy continue to improve over time. Patient also had periods of restlessness which appeared as likely component of his Lewy body dementia and
he was started on trazodone which improved his symptoms. Patient was also evaluated by physical therapy who recommended SNF however family eventually chose to go home with 10/04 care. While he was in the hospital he also had 2.5 cm right lower lobe
nodule which was discussed with patient and his spouse. They were instructed to follow-up outpatient. Once patient symptoms continue to improve, he was then discharged with instructions to follow-up with all his physicians outpatient.
Discharge Plan
-
Patient Disposition: Home with Home Care
Discharge Diagnosis/Procedures: Acute metabolic encephalopathy
History of Lewy body dementia
Pneumonia
2.5 cm right lower lobe nodule
CKD stage V
Diet: Other diet
Additional Diets: 2 g potassium
Activity: With assistance and As tolerated
Driving Restrictions: Not until seen by your Dr
Bathing Restrictions: None
Blood Work: BMP with primary care provider or nephrology
Referrals:
Archie Botello MD [Family Provider, Family Practice]
Prescriptions:
New
trazodone 50 mg Tablet
50 mg PO HS Qty: 30 0RF
guaifenesin 600 mg Tablet Extended Release 12hr
600 mg PO Q12 Qty: 14 0RF
sennosides-docusate sodium [Senna Plus] 8.6-50 mg Tablet
1 tab PO BIDPRN PRN (Reason: constipation) Qty: 0 0RF
sodium bicarbonate 650 mg Tablet
650 mg PO BID Qty: 30 0RF
acetaminophen 325 mg Tablet
650 mg PO Q4HPRN PRN (Reason: mild pain/DOMINGO/temp> 100.4F) Qty: 0 0RF
Continued
atorvastatin 20 MG tablet
20 mg PO QPM
furosemide [Lasix] 40 mg Tablet
40 mg PO BID
allopurinol 100 mg Tablet
100 mg PO QPM
melatonin 5 mg Tablet
10 mg PO HS
labetalol 100 mg Tablet
100 mg PO BID
donepezil 10 mg Tablet
10 mg PO HS
dutasteride 0.5 mg Capsule
0.5 mg PO HS
cholecalciferol (vitamin D3) [Vitamin D3] 25 mcg (1,000 unit) Tablet
25 mcg PO DAILY
magnesium oxide 400 mg magnesium Tablet
400 mg PO HS
Discharge Orders:
Discharge Patient (As Directed); Ordered 07/24/25
Ordered By: Vaughn Chan
Discharge Date and Time
Discharge Date/Time: 07/24/25 11:35
Print Language: ROMANIAN
[2025-07-24 09:37] LABS: Blood Urea Nitrogen 91 mg/dl (9-20); Calcium 8.9 mg/dl (8.4-10.2); Carbon Dioxide 22 mmol/L (22-30); Chloride 107 mmol/L (98-107); Estimated Creatinine Clearance 8 ml/min; Glucose 97 mg/dl (70-99); Potassium 4.3 mmol/L (3.5-5.1); Sodium 139 mmol/L (135-145); eGFR 6.98
--- NOTE | 2025-07-24 10:34 | CM ---
MD entered order for discharge.
Spoke with Vera she agrees with dc plan for home with [facility] with [facility] and [facility].
Ambulance transport set up
PT will issue patient a walker prior to d/c.
IMM verbally reviewed with , placed in chart.
Plan Home with [facility] and private 24/7 care set up by family.
== END 2025-07-24 11:35 | disposition home health service (06) | DRG 70 ==
LOC: 4 WEST ACU 09:36
PROVIDERS: Emergency Medicine; Hospitalist; Registered Nurse; ADMITTING PHYSICIAN Hospitalist; ATTENDING PHYSICIAN Internal Medicine; EMERGENCY PHYSICIAN Student in an Organized Health Care Education/Training Program; FAMILY PHYSICIAN Family Medicine
DX: G93.41 Metabolic encephalopathy (principal); J18.9 Pneumonia, unspecified organism; F02.818 Dementia in other diseases classified elsewhere, unspecified severity, with other behavioral disturbance; F02.82 Dementia in other diseases classified elsewhere, unspecified severity, with psychotic disturbance; N18.5 Chronic kidney disease, stage 5; I12.0 Hypertensive chronic kidney disease with stage 5 chronic kidney disease or end stage renal disease; N17.9 Acute kidney failure, unspecified; G31.83 Neurocognitive disorder with Lewy bodies; G47.00 Insomnia, unspecified; Z11.52 Encounter for screening for COVID-19; N40.0 Benign prostatic hyperplasia without lower urinary tract symptoms; D63.1 Anemia in chronic kidney disease; Z87.442 Personal history of urinary calculi; Z88.8 Allergy status to other drugs, medicaments and biological substances; Z66 Do not resuscitate; E53.8 Deficiency of other specified B group vitamins; E78.00 Pure hypercholesterolemia, unspecified; G47.33 Obstructive sleep apnea (adult) (pediatric)
CPT/HCPCS: 70450; 71250; 80048; 80053; 81003; 81015; 85025; 85027; 87070; 87205; 87502; 87811; 93005; 97116; 97163; 97167; 99285